=== PATIENT | male | born 1970 | race African-American/Black ===

== ENCOUNTER 2022-05-12 11:40 | Inpatient (IN) | payer MEDICAID ==
[~2022-05-12] VITALS: Ht 182.9 cm; Wt 80.7 kg
[2022-05-12 14:41] LABS: HEMATOCRIT. 24.8 % (42.0-52.0); MEAN CORPUSCULAR HEMOGLOBIN 31.3 pg (28.0-32.0); MEAN CORPUSCULAR VOLUME 96.6 fL (80.0-94.0); MEAN PLATELET VOLUME 9.5 fl (7.4-10.4); PLATELET 355 x1000/uL (130-400); RED BLOOD CELL COUNT 2.56 mill/uL (4.7-6.1); RED CELL DISTRIBUTION WIDTH 14.2 % (11.6-14.6)
[2022-05-12 14:55] LABS: CHLORIDE 111 mEq/L (98-107)
[2022-05-12 15:04] LABS: ETHANOL BLOOD < 10 mg/dL
[2022-05-12] MEDS ORDERED: FUROSEMIDE 40MG/4ML VIAL IV ONE (15:30)
[2022-05-12] MEDS ORDERED: ASPIRIN 81MG TABLET PO ONE (15:30)
[2022-05-12 16:27] LABS: PLATELET ESTIMATE NORMAL
[2022-05-12] MEDS ORDERED: HYDRALAZINE 20MG/ML VIAL IV ONE ×2 (16:30→18:45)
[2022-05-12] MEDS ORDERED: ASPIRIN 81MG TABLET PO NR (17:15)
[2022-05-12] MEDS ORDERED: HYDRALAZINE 20MG/ML VIAL IV NR ×2 (17:15→23:10)
[2022-05-12] MEDS ORDERED: FUROSEMIDE 40MG/4ML VIAL IV NR (17:15)
[2022-05-12] MEDS ORDERED: ONDANSETRON HCL 4MG/2ML INJ IV PRN (23:15)
[2022-05-12] MEDS ORDERED: ACETAMINOPHEN 325MG TABLET PO PRN (23:15)
[2022-05-12] MEDS ORDERED: CLONIDINE 0.1MG TABLET PO PRN (23:15)
[2022-05-12] MEDS ORDERED: IPRATROPIUM/ALBUTEROL 0.5-3(2.5)MG/3ML NEB NEB PRN (23:15)
[2022-05-12] MEDS ORDERED: FUROSEMIDE 40MG/4ML VIAL IVP NR (23:30)
[2022-05-12] MEDS ORDERED: ALBUTEROL (0.083%) 2.5MG/3ML NEB HHN PRN (23:45)
[2022-05-12] MEDS ORDERED: LEVOFLOXACIN 500MG PREMIX 100 ML IV NR (23:45)
[2022-05-12] MEDS ORDERED: IPRATROPIUM BROMIDE (0.02%) 0.5MG/2.5ML NEB HHN PRN (23:45)
[2022-05-13 04:47] LABS: BASOPHILS % 0.8 % (0.0-2.0); EOSINOPHILS % 0.1 % (0.0-5.0); HEMATOCRIT. 24.8 % (42.0-52.0); LYMPHOCYTES % 7.7 % (20.0-50.0); MEAN CORPUSCULAR HEMOGLOBIN 31.4 pg (28.0-32.0); MEAN CORPUSCULAR VOLUME 97.1 fL (80.0-94.0); MEAN PLATELET VOLUME 9.9 fl (7.4-10.4); MONOCYTES % 4.4 % (2.0-8.0); PLATELET 372 x1000/uL (130-400); RED BLOOD CELL COUNT 2.56 mill/uL (4.7-6.1); RED CELL DISTRIBUTION WIDTH 14.2 % (11.6-14.6)
[2022-05-13 07:53] LABS: *AMPHETAMINES SCREEN URINE NEGATIVE (NEGATIVE); *BARBITURATES SCREEN URINE NEGATIVE (NEGATIVE); *BENZODIAZEPINES SCREEN URINE NEGATIVE (NEGATIVE); *COCAINE SCREEN URINE NEGATIVE (NEGATIVE); CANNABINOID URINE SCREEN PRESUMTIVE POSITIVE (NEGATIVE); METHADONE URINE SCREEN NEGATIVE (NEGATIVE); OPIATES URINE SCREEN NEGATIVE (NEGATIVE); PHENCYCLIDINE URINE SCREEN NEGATIVE (NEGATIVE)
[2022-05-13] MEDS ORDERED: INSULIN LISPRO 100 UNITS/ML SUBCUT NR ×2 (09:30→13:15)
[2022-05-13] MEDS: PANTOPRAZOLE SODIUM 40 MG/VIAL IV SCH (09:35)
[2022-05-13] MEDS: ENOXAPARIN 30MG/0.3ML SYR SUBCUT SCH (09:35)
[2022-05-13] MEDS: AMLODIPINE 5MG TABLET PO SCH ×2 (09:35→14:28)
[2022-05-13] MEDS ORDERED: DEXTROSE 50% WATER 50ML SYRINGE IV PRN ×2 (09:45→13:30)
[2022-05-13] MEDS ORDERED: INSULIN GLARGINE 100 UNITS/ML SUBCUT SCH (10:00)
[2022-05-13] MEDS: FUROSEMIDE 40MG/4ML VIAL IVP SCH (10:00)
[2022-05-13] MEDS ORDERED: BLOOD SUGAR DIAGNOSTIC STRIP TEST SCH (11:30)
[2022-05-13] MEDS ORDERED: NITROGLYCERIN OINT 1GM/INCH UDPKT TD SCH (12:00)
[2022-05-13] MEDS: INSULIN LISPRO 100 UNITS/ML SUBCUT SCH ×2 (12:00→17:00)
[2022-05-13 13:09] LABS: CLARITY URINE CLEAR (CLEAR); COLOR URINE YELLOW (YELLOW); KETONES URINE TRACE (NEGATIVE); LEUKOCYTE ESTERASE URINE NEGATIVE (NEGATIVE); NITRITE URINE NEGATIVE (NEGATIVE); OCCULT BLOOD URINE NEGATIVE (NEGATIVE); PROTEIN URINE 2+ (NEGATIVE); SPECIFIC GRAVITY URINE 1.012 (1.005-1.030); UROBILINOGEN URINE 0.2 E.U./dL (0.2-1.0)
[2022-05-13] MEDS: METOPROLOL SUCCINATE 50MG ER TABLET PO SCH (13:30)
[2022-05-13] MEDS ORDERED: SODIUM CHLORIDE 0.9% 1,000 ML IV SCH (13:30)
[2022-05-13] MEDS ORDERED: INSULIN REGULAR 100U/100ML PMX 100 ML IV SCH (13:30)
[2022-05-13] MEDS: BLOOD SUGAR DIAGNOSTIC STRIP TEST SCH ×11 (13:30→23:30)
[2022-05-13] MEDS ORDERED: LABETALOL 5MG/ML SYR 20 MG/4 ML SYRINGE IV NR (13:45)
[2022-05-13] MEDS ORDERED: SODIUM BICARBONATE 8.4% 1 MEQ/ML 50ML SYR IV NR (13:45)
[2022-05-13] MEDS ORDERED: CLONIDINE 0.1MG TABLET PO SCH (14:00)
[2022-05-13] MEDS: HYDRALAZINE HCL 50MG TABLET PO SCH ×2 (14:00→22:00)
[2022-05-13] MEDS: CITRIC ACID/SODIUM CITRATE SOLN 30ML UDC PO SCH ×2 (14:20→17:00)
[2022-05-13] MEDS: CLONIDINE 0.1MG TABLET PO SCH (14:28)
[2022-05-13] MEDS ORDERED: NITROGLYCERIN 50MG PREMIX 250 ML IV SCH (15:00)
[2022-05-13 16:14] LABS: BETA HYDROXYBUTYRATE 0.9 mMol/L (0.0-0.3)
[2022-05-13] MEDS ORDERED: MORPHINE SULFATE 2 MG/ML CPJ (NOT FOR IM USE) IV PRN (21:45)
[2022-05-13] MEDS ORDERED: ONDANSETRON HCL 4MG/2ML INJ IV PRN (21:45)
[2022-05-13] MEDS: PHENYTOIN SODIUM EXTENDED 100MG CAPSULE PO SCH (23:21)
[2022-05-14] VITALS (10 sets, daily range): BP systolic 143–163; BP diastolic 74–92
[2022-05-14] MEDS: BLOOD SUGAR DIAGNOSTIC STRIP TEST SCH ×11 (00:30→22:07)
[2022-05-14] MEDS ORDERED: LEVOFLOXACIN 250MG PREMIX 100 ML IV SCH (01:00)
[2022-05-14] MEDS: DEXTROSE 50% WATER 50ML SYRINGE IV PRN ×2 (01:21→02:54)
[2022-05-14] MEDS: CLONIDINE 0.1MG TABLET PO SCH ×3 (01:47→22:06)
[2022-05-14 05:31] LABS: BASOPHILS % 0.3 % (0.0-2.0); EOSINOPHILS % 2.5 % (0.0-5.0); LYMPHOCYTES % 10.3 % (20.0-50.0); MEAN CORPUSCULAR HEMOGLOBIN 32.2 pg (28.0-32.0); MEAN CORPUSCULAR VOLUME 93.6 fL (80.0-94.0); MONOCYTES % 6.4 % (2.0-8.0); NEUTROPHILS % 80.5 % (40.0-76.0); PLATELET 344 x1000/uL (130-400); RED BLOOD CELL COUNT 2.18 mill/uL (4.7-6.1); RED CELL DISTRIBUTION WIDTH 13.6 % (11.6-14.6)
[2022-05-14 06:25] LABS: HEMATOCRIT. 20.4 % (42.0-52.0)
[2022-05-14] MEDS: HYDRALAZINE HCL 50MG TABLET PO SCH ×3 (06:37→22:05)
[2022-05-14] MEDS: ENOXAPARIN 30MG/0.3ML SYR SUBCUT SCH (11:56)
[2022-05-14] MEDS: PANTOPRAZOLE SODIUM 40 MG/VIAL IV SCH (11:56)
[2022-05-14] MEDS: PHENYTOIN SODIUM EXTENDED 100MG CAPSULE PO SCH ×2 (11:56→20:49)
[2022-05-14] MEDS: FUROSEMIDE 40MG/4ML VIAL IVP SCH (11:56)
[2022-05-14] MEDS: CITRIC ACID/SODIUM CITRATE SOLN 30ML UDC PO SCH ×3 (11:56→17:48)
[2022-05-14] MEDS: AMLODIPINE 5MG TABLET PO SCH ×2 (11:57→20:50)
[2022-05-14] MEDS: METOPROLOL SUCCINATE 50MG ER TABLET PO SCH (11:57)
[2022-05-14] MEDS ORDERED: DEXTROSE 50% WATER 50ML SYRINGE IV PRN (12:15)
[2022-05-14] MEDS: INSULIN LISPRO 100 UNITS/ML SUBCUT SCH ×3 (13:00→22:11)
[2022-05-14] MEDS: NITROGLYCERIN OINT 1GM/INCH UDPKT TD SCH ×2 (17:48→22:06)
[2022-05-14] MEDS: INSULIN GLARGINE 100 UNITS/ML SUBCUT SCH (17:51)
[2022-05-14] MEDS ORDERED: NALOXONE HCL 0.4MG/ML VIAL IV PRN (19:45)
[2022-05-14] MEDS: EPOETIN ALFA-EPBX 4,000 UNIT/ML VIAL SUBCUT SCH (20:53)
[2022-05-15] VITALS (13 sets, daily range): BP systolic 111–149; BP diastolic 60–96
[2022-05-15] MEDS: HYDRALAZINE HCL 50MG TABLET PO SCH ×3 (05:41→22:12)
[2022-05-15] MEDS: NITROGLYCERIN OINT 1GM/INCH UDPKT TD SCH ×3 (05:41→22:13)
[2022-05-15] MEDS: CLONIDINE 0.1MG TABLET PO SCH ×3 (05:41→22:12)
[2022-05-15] MEDS: INSULIN LISPRO 100 UNITS/ML SUBCUT SCH ×4 (08:00→21:00)
[2022-05-15 08:07] LABS: HEMATOCRIT. 22.8 % (42.0-52.0); HEMOGLOBIN. 7.7 g/dL (14.0-18.0); MEAN CORPUSCULAR HEMOGLOBIN 31.4 pg (28.0-32.0); MEAN CORPUSCULAR VOLUME 92.6 fL (80.0-94.0); MEAN PLATELET VOLUME 8.9 fl (7.4-10.4); PLATELET 300 x1000/uL (130-400); RED BLOOD CELL COUNT 2.46 mill/uL (4.7-6.1); RED CELL DISTRIBUTION WIDTH 15.8 % (11.6-14.6)
[2022-05-15] MEDS: BLOOD SUGAR DIAGNOSTIC STRIP TEST SCH ×4 (08:17→20:34)
[2022-05-15] MEDS: PHENYTOIN SODIUM EXTENDED 100MG CAPSULE PO SCH ×2 (10:30→20:34)
[2022-05-15] MEDS: AMLODIPINE 5MG TABLET PO SCH ×2 (10:31→20:34)
[2022-05-15] MEDS: CITRIC ACID/SODIUM CITRATE SOLN 30ML UDC PO SCH ×3 (10:31→17:21)
[2022-05-15] MEDS: FUROSEMIDE 40MG/4ML VIAL IVP SCH (10:31)
[2022-05-15] MEDS: METOPROLOL SUCCINATE 50MG ER TABLET PO SCH (10:35)
[2022-05-15] MEDS: PANTOPRAZOLE SODIUM 40 MG/VIAL IV SCH (10:35)
[2022-05-15] MEDS: LEVOFLOXACIN 500MG PREMIX 100 ML IV SCH (10:35)
[2022-05-15] MEDS: INSULIN GLARGINE 100 UNITS/ML SUBCUT SCH (11:00)
[2022-05-15] MEDS ORDERED: METOPROLOL TARTRATE 5MG/5ML VIAL IV PRN (16:30)
[2022-05-15 19:57] LABS: PLATELET ESTIMATE NORMAL
[2022-05-16] VITALS (11 sets, daily range): BP systolic 128–170; BP diastolic 62–100
[2022-05-16] MEDS: BLOOD SUGAR DIAGNOSTIC STRIP TEST SCH ×4 (05:00→21:24)
[2022-05-16] MEDS: CLONIDINE 0.1MG TABLET PO SCH ×3 (05:33→22:56)
[2022-05-16] MEDS: HYDRALAZINE HCL 50MG TABLET PO SCH ×3 (05:33→22:56)
[2022-05-16] MEDS: NITROGLYCERIN OINT 1GM/INCH UDPKT TD SCH ×3 (05:34→22:56)
[2022-05-16 07:21] LABS: HEMATOCRIT. 23.6 % (42.0-52.0); HEMOGLOBIN. 7.9 g/dL (14.0-18.0); MEAN CORPUSCULAR HEMOGLOBIN 31.1 pg (28.0-32.0); MEAN PLATELET VOLUME 9.3 fl (7.4-10.4); PLATELET 288 x1000/uL (130-400); RED BLOOD CELL COUNT 2.54 mill/uL (4.7-6.1)
[2022-05-16] MEDS: INSULIN LISPRO 100 UNITS/ML SUBCUT SCH ×4 (08:00→21:40)
[2022-05-16] MEDS: CITRIC ACID/SODIUM CITRATE SOLN 30ML UDC PO SCH ×3 (09:09→18:41)
[2022-05-16] MEDS: PHENYTOIN SODIUM EXTENDED 100MG CAPSULE PO SCH ×2 (09:09→21:25)
[2022-05-16] MEDS: FUROSEMIDE 40MG/4ML VIAL IVP SCH (09:09)
[2022-05-16] MEDS: AMLODIPINE 5MG TABLET PO SCH ×2 (09:09→21:26)
[2022-05-16] MEDS: PANTOPRAZOLE 40MG DR TABLET PO SCH (09:09)
[2022-05-16] MEDS: INSULIN GLARGINE 100 UNITS/ML SUBCUT SCH (10:00)
[2022-05-16] MEDS: METOPROLOL SUCCINATE 50MG ER TABLET PO SCH (10:03)
[2022-05-16 13:16] LABS: PLATELET ESTIMATE NORMAL
[2022-05-16] MEDS: EPOETIN ALFA-EPBX 4,000 UNIT/ML VIAL SUBCUT SCH (21:24)
[2022-05-17] VITALS (9 sets, daily range): BP systolic 143–167; BP diastolic 50–85
[2022-05-17] MEDS: NITROGLYCERIN OINT 1GM/INCH UDPKT TD SCH (05:12)
[2022-05-17] MEDS: HYDRALAZINE HCL 50MG TABLET PO SCH (05:13)
[2022-05-17] MEDS: CLONIDINE 0.1MG TABLET PO SCH (05:13)
[2022-05-17 07:30] LABS: BASOPHILS % 1.4 % (0.0-2.0); EOSINOPHILS % 0.5 % (0.0-5.0); HEMATOCRIT. 22.9 % (42.0-52.0); HEMOGLOBIN. 7.6 g/dL (14.0-18.0); LYMPHOCYTES % 7.3 % (20.0-50.0); MEAN CORPUSCULAR VOLUME 93.2 fL (80.0-94.0); MEAN PLATELET VOLUME 9.4 fl (7.4-10.4); MONOCYTES % 6.9 % (2.0-8.0); NEUTROPHILS % 83.9 % (40.0-76.0); PLATELET 284 x1000/uL (130-400); RED BLOOD CELL COUNT 2.45 mill/uL (4.7-6.1)
[2022-05-17] MEDS: BLOOD SUGAR DIAGNOSTIC STRIP TEST SCH ×2 (07:52→12:08)
[2022-05-17] MEDS: FUROSEMIDE 40MG/4ML VIAL IVP SCH (08:29)
[2022-05-17] MEDS: CITRIC ACID/SODIUM CITRATE SOLN 30ML UDC PO SCH ×2 (08:29→13:00)
[2022-05-17] MEDS: PANTOPRAZOLE 40MG DR TABLET PO SCH (08:29)
[2022-05-17] MEDS: PHENYTOIN SODIUM EXTENDED 100MG CAPSULE PO SCH (08:29)
[2022-05-17] MEDS: INSULIN LISPRO 100 UNITS/ML SUBCUT SCH ×2 (08:30→13:00)
[2022-05-17] MEDS: AMLODIPINE 5MG TABLET PO SCH (08:30)
[2022-05-17] MEDS ORDERED: PHEN100C4 PO (11:17)
[2022-05-17] MEDS ORDERED: METO-385 PO (11:17)
[2022-05-17] MEDS ORDERED: CLON0.1T PO (11:17)
[2022-05-17] MEDS ORDERED: INSU100I24 SQ (11:17)
[2022-05-17] MEDS ORDERED: CITR473S PO (11:17)
[2022-05-17] MEDS ORDERED: AMLO5TAB88 PO (11:17)
[2022-05-17] MEDS ORDERED: HYDR-4135 PO (11:17)
[2022-05-17] MEDS ORDERED: LEVO-65 MT (11:18)
[2022-05-17] MEDS: INSULIN GLARGINE 100 UNITS/ML SUBCUT SCH (11:45)
[2022-05-17] MEDS: LEVOFLOXACIN 500MG PREMIX 100 ML IV SCH (11:47)
[2022-05-17] MEDS: METOPROLOL SUCCINATE 50MG ER TABLET PO SCH (13:00)
== END 2022-05-17 17:24 | disposition home or self-care (01) | DRG 720 ==
LOC: ER 11:40 → MICUSO 18:46 → EDBEDREQTM 18:49 → EDBEDREQSVC 18:49 → EDBEDREQ 18:49 → EDBEDREQSVC 05-14 07:47 → 5EST 05-14 10:36
PROVIDERS: ADMIT Internal Medicine; ATTEND Internal Medicine
PROC: 30233N1 Transfusion of Nonautologous Red Blood Cells into Peripheral Vein, Percutaneous Approach (ICD-10-PCS; principal; 2022-05-14)
DX: A41.9 Sepsis, unspecified organism (principal); J96.01 Acute respiratory failure with hypoxia; E43 Unspecified severe protein-calorie malnutrition; I13.0 Hypertensive heart and chronic kidney disease with heart failure and stage 1 through stage 4 chronic kidney disease, or unspecified chronic kidney disease; N17.9 Acute kidney failure, unspecified; E11.319 Type 2 diabetes mellitus with unspecified diabetic retinopathy without macular edema; E88.09 Other disorders of plasma-protein metabolism, not elsewhere classified; D63.1 Anemia in chronic kidney disease; I50.9 Heart failure, unspecified; E11.22 Type 2 diabetes mellitus with diabetic chronic kidney disease; J18.9 Pneumonia, unspecified organism; Z20.822 Contact with and (suspected) exposure to COVID-19; I16.1 Hypertensive emergency; E87.5 Hyperkalemia; N18.9 Chronic kidney disease, unspecified; F17.210 Nicotine dependence, cigarettes, uncomplicated; Z87.820 Personal history of traumatic brain injury; Z79.899 Other long term (current) drug therapy; Z68.24 Body mass index [BMI] 24.0-24.9, adult
CPT/HCPCS: 36415; 71045; 76770; 80048; 80053; 80305; 80320; 81003; 82010; 82550; 82962; 83036; 83880; 84145; 84484; 85025; 86850; 86900; 86920; 87426; 93005; 93306; 93970; 99291; C9113; C9803; J0360; J0885; J1650; J1815; J1940; J1956; J2270; J2405; J3490; J7030; P9016; G0480

== ENCOUNTER 2022-07-09 14:30 | Inpatient (IN) | payer MEDICAID ==
[~2022-07-09] VITALS: Ht 180.3 cm; Wt 66.5 kg
[~2022-07-09 14:30] MED LIST: AMLO5TAB88 PO; CITR473S PO; CLON0.1T PO; HYDR-4135 PO; INSU100I24 SQ; LEVO-65 MT; METO-385 PO; PHEN100C4 PO
[2022-07-09] MEDS ORDERED: FLUORESCEIN SODIUM 1MG/STRIP BOTHEYE ONE (14:45)
[2022-07-09] MEDS ORDERED: TETRACAINE 0.5% OPHTH DROPS 4ML BOTHEYE ONE (14:45)
[2022-07-09] MEDS ORDERED: CLONIDINE 0.1MG TABLET PO NR (15:00)
[2022-07-09 15:21] LABS: BASOPHILS % 3.7 % (0.0-2.0); EOSINOPHILS % 1.3 % (0.0-5.0); HEMATOCRIT. 29.7 % (42.0-52.0); HEMOGLOBIN. 9.7 g/dL (14.0-18.0); LYMPHOCYTES % 19.9 % (20.0-50.0); MEAN CORPUSCULAR HEMOGLOBIN 30.5 pg (28.0-32.0); MEAN CORPUSCULAR VOLUME 92.8 fL (80.0-94.0); MEAN PLATELET VOLUME 8.4 fl (7.4-10.4); MONOCYTES % 6.9 % (2.0-8.0); NEUTROPHILS % 68.2 % (40.0-76.0); PLATELET 463 x1000/uL (130-400); RED CELL DISTRIBUTION WIDTH 16.1 % (11.6-14.6)
[2022-07-09 15:26] LABS: CHLORIDE 105 mEq/L (98-107)
[2022-07-09] MEDS ORDERED: HYDRALAZINE 20MG/ML VIAL IV NR (16:15)
[2022-07-10] MEDS ORDERED: HYDRALAZINE 20MG/ML VIAL IV NR ×2 (00:45→05:15)
[2022-07-10] MEDS ORDERED: CLONIDINE 0.1MG TABLET PO PRN (01:30)
[2022-07-10] MEDS: HYDRALAZINE 20MG/ML VIAL IV PRN ×2 (01:40→08:43)
[2022-07-10] MEDS ORDERED: DEXTROSE 50% WATER 50ML SYRINGE IV PRN (02:00)
[2022-07-10] MEDS ORDERED: IPRATROPIUM/ALBUTEROL 0.5-3(2.5)MG/3ML NEB HHN PRN (02:15)
[2022-07-10] MEDS ORDERED: DOCUSATE SODIUM 100MG CAPSULE PO PRN (02:15)
[2022-07-10] MEDS ORDERED: ONDANSETRON HCL 4MG/2ML INJ IV PRN (02:15)
[2022-07-10] MEDS ORDERED: ACETAMINOPHEN 325MG TABLET PO PRN (02:15)
[2022-07-10] MEDS ORDERED: GUAIFENESIN 200MG/10ML SUGAR FREE UDC PO PRN (02:15)
[2022-07-10 03:55] VITALS: BP 171/99
[2022-07-10 04:00] VITALS: BP 192/88
[2022-07-10] MEDS ORDERED: ASPI-1497 PO (04:39)
[2022-07-10] MEDS ORDERED: METO-385 PO (04:39)
[2022-07-10] MEDS ORDERED: POTA-202 PO (04:39)
[2022-07-10] MEDS ORDERED: ENAL20TA18 PO (04:39)
[2022-07-10] MEDS ORDERED: FOLI-43 PO (04:39)
[2022-07-10 05:43] VITALS: BP 178/95
[2022-07-10] MEDS: BLOOD SUGAR DIAGNOSTIC STRIP TEST SCH ×2 (05:43→11:40)
[2022-07-10 05:48] LABS: CHLORIDE 105 mEq/L (98-107)
[2022-07-10 06:04] LABS: PHOSPHORUS 3.6 mg/dL (2.5-4.9); T4 FREE 0.93 ng/dL (0.76-1.46); TOTAL IRON BINDING CAPACITY 246 ug/dL (250-450)
[2022-07-10 06:11] LABS: FOLIC ACID (FOLATE) SERUM > 20.00 ng/mL (>5.38)
[2022-07-10 06:20] LABS: EOSINOPHILS % 2.5 % (0.0-5.0); HEMATOCRIT. 29.4 % (42.0-52.0); HEMOGLOBIN. 10.1 g/dL (14.0-18.0); LYMPHOCYTES % 20.1 % (20.0-50.0); MEAN CORPUSCULAR HEMOGLOBIN 30.7 pg (28.0-32.0); MEAN CORPUSCULAR VOLUME 89.6 fL (80.0-94.0); MEAN PLATELET VOLUME 8.8 fl (7.4-10.4); NEUTROPHILS % 68.4 % (40.0-76.0); PLATELET 457 x1000/uL (130-400); RED BLOOD CELL COUNT 3.28 mill/uL (4.7-6.1); RED CELL DISTRIBUTION WIDTH 16.1 % (11.6-14.6)
[2022-07-10] MEDS: INSULIN LISPRO 100 UNITS/ML SUBCUT SCH ×2 (06:42→13:29)
[2022-07-10 08:04] VITALS: BP 173/98
[2022-07-10] MEDS ORDERED: AMLODIPINE 5MG TABLET PO SCH (09:00)
[2022-07-10] MEDS ORDERED: FAMOTIDINE 20MG TABLET PO SCH (09:00)
[2022-07-10] MEDS ORDERED: ENOXAPARIN 40MG/0.4ML SYR SUBCUT SCH (09:00)
[2022-07-10 12:00] VITALS: BP 163/78
[2022-07-10] MEDS ORDERED: METOPROLOL SUCCINATE 50MG ER TABLET PO SCH (12:00)
[2022-07-10 13:39] VITALS: BP 163/78
[2022-07-10] MEDS ORDERED: CLONIDINE 0.1MG TABLET PO SCH (14:00)
[2022-07-10] MEDS ORDERED: HYDRALAZINE HCL 50MG TABLET PO SCH (14:00)
[2022-07-10] MEDS ORDERED: PHENYTOIN SODIUM EXTENDED 100MG CAPSULE PO SCH (18:00)
[2022-07-11] MEDS ORDERED: ENALAPRIL 5MG TABLET PO SCH (09:00)
[2022-07-11] MEDS ORDERED: INSULIN GLARGINE 100 UNITS/ML SUBCUT SCH (10:00)
== END 2022-07-10 14:50 | disposition home or self-care (01) | DRG 470 ==
LOC: ER 14:30 → 7EST 19:23 → ENRESERV 23:56 → 8WST 07-10 00:11 → 7EST 07-10 00:13
PROVIDERS: ADMIT Internal Medicine; ATTEND Internal Medicine
DX: I12.0 Hypertensive chronic kidney disease with stage 5 chronic kidney disease or end stage renal disease (principal); N18.6 End stage renal disease; E11.22 Type 2 diabetes mellitus with diabetic chronic kidney disease; E44.0 Moderate protein-calorie malnutrition; E11.319 Type 2 diabetes mellitus with unspecified diabetic retinopathy without macular edema; E87.1 Hypo-osmolality and hyponatremia; H35.039 Hypertensive retinopathy, unspecified eye; D64.9 Anemia, unspecified; D75.839 Thrombocytosis, unspecified; E03.8 Other specified hypothyroidism; E11.65 Type 2 diabetes mellitus with hyperglycemia; E61.1 Iron deficiency; G40.909 Epilepsy, unspecified, not intractable, without status epilepticus; R74.8 Abnormal levels of other serum enzymes; H54.3 Unqualified visual loss, both eyes; Z99.2 Dependence on renal dialysis; Z79.4 Long term (current) use of insulin; Z82.49 Family history of ischemic heart disease and other diseases of the circulatory system; Z86.73 Personal history of transient ischemic attack (TIA), and cerebral infarction without residual deficits; Z68.20 Body mass index [BMI] 20.0-20.9, adult; Z79.82 Long term (current) use of aspirin
CPT/HCPCS: 36415; 70496; 70498; 71045; 76700; 80053; 82746; 82962; 83036; 83540; 83550; 83735; 83880; 84100; 84425; 84439; 84443; 84484; 85025; 93005; 93970; 99285; J0360; J1650; J1815

== ENCOUNTER 2023-01-14 06:37 | Inpatient (IN) | payer OTHER ==
[~2023-01-14] VITALS: Ht 180.3 cm; Wt 63.6 kg
[2023-01-14] VITALS (22 sets, daily range): BP systolic 179–253; BP diastolic 89–137; PULSE 67–99; RESP 12–22; TEMP 97.5–98.9; O2SAT 98
[~2023-01-14 06:37] MED LIST changes: -AMLO5TAB88 PO; +ASPI-1497 PO; -CITR473S PO; +ENAL-79 PO; +FOLI-43 PO; -LEVO-65 MT; +POTA-202 PO
[2023-01-14 08:46] LABS: BASOPHILS % 1.4 % (0.0-2.0); EOSINOPHILS % 1.1 % (0.0-5.0); HEMATOCRIT. 30.7 % (42.0-52.0); LYMPHOCYTES % 12.7 % (20.0-50.0); MEAN CORPUSCULAR HEMOGLOBIN 31.4 pg (28.0-32.0); MEAN CORPUSCULAR HGB CONC 32.6 g/dL (31.0-37.0); MEAN CORPUSCULAR VOLUME 96.5 fL (80.0-94.0); MEAN PLATELET VOLUME 9.5 fl (7.4-10.4); MONOCYTES % 5.2 % (2.0-8.0); NEUTROPHILS % 79.6 % (40.0-76.0); PLATELET 236 x1000/uL (130-400); RED BLOOD CELL COUNT 3.18 mill/uL (4.7-6.1); RED CELL DISTRIBUTION WIDTH 15.6 % (11.6-14.6); WHITE BLOOD COUNT 7.3 x1000/uL (4.5-11.0)
[2023-01-14 09:00] LABS: CALCIUM 8.5 mg/dL (8.5-10.1); CHLORIDE 106 mEq/L (98-107); INDEX HEMOLYSI 2 (1-3); INDEX ICTERIC 1 (1-4); INDEX LIPEMIC 1 (1-3); POTASSIUM 4.2 mEq/L (3.5-5.1); SODIUM 140 mEq/L (136-145)
[2023-01-14] MEDS ORDERED: ALTEPLASE 2MG/VIAL ITC SCH (09:00)
[2023-01-14] MEDS ORDERED: ALTEPLASE 2MG/VIAL ITC NR (09:01)
[2023-01-14 09:07] LABS: ALANINE AMINOTRANSFERASE 31 IU/L (13-61); ALBUMIN 3.4 g/dL (3.4-5.0); ASPARTATE AMINOTRANSFERASE 18 IU/L (15-37); BILIRUBIN TOTAL 0.3 mg/dL (0.1-1.0); CARBON DIOXIDE 27 mEq/L (21-32); GLUCOSE 323 mg/dL (70-105); PROTEIN TOTAL 6.8 g/dL (6.0-8.3)
[2023-01-14 09:16] LABS: INR 0.9; PROTHROMBIN TIME 10.1 sec (9.6-11.0)
[2023-01-14 09:16] LABS: CREATININE 5.8 mg/dL (0.6-1.3); UREA NITROGEN BLOOD 83 mg/dL (7-21)
[2023-01-14] MEDS ORDERED: HYDRALAZINE 20MG/ML VIAL IV NR (12:15)
[2023-01-14] MEDS ORDERED: HYDRALAZINE HCL 50MG TABLET PO SCH (12:30)
[2023-01-14] MEDS ORDERED: CEFAZOLIN 1000MG PREMIX 50 ML IV SCH (12:30)
[2023-01-14] MEDS ORDERED: LIDOCAINE HCL 1% 10 MG/ML 10ML VIAL ONE (12:34)
[2023-01-14] MEDS ORDERED: HYDRALAZINE HCL 25MG TABLET PO SCH (12:35)
[2023-01-14] MEDS: CLONIDINE 0.1MG TABLET PO SCH ×2 (12:52→21:34)
[2023-01-14] MEDS ORDERED: FENTANYL CITRATE/PF 50MCG/ML 2ML VIAL ONE (13:20)
[2023-01-14] MEDS ORDERED: FENTANYL CITRATE/PF 50MCG/ML 2ML VIAL IV ONE (13:45)
[2023-01-14] MEDS ORDERED: FENTANYL CITRATE/PF 50MCG/ML 2ML VIAL IV NR (13:45)
[2023-01-14] MEDS ORDERED: CLONIDINE 0.1MG TABLET PO NR (14:39)
[2023-01-14] MEDS ORDERED: NIFEDIPINE XL 90MG TAB PO NR (15:45)
[2023-01-14] MEDS ORDERED: ACETAMINOPHEN 325MG TABLET PO PRN (17:45)
[2023-01-14] MEDS ORDERED: ONDANSETRON HCL 4MG/2ML INJ IV PRN (17:45)
[2023-01-14] MEDS: MINOXIDIL 2.5MG TABLET PO SCH (17:54)
[2023-01-14] MEDS ORDERED: DOXAZOSIN MESYLATE 4MG TABLET PO SCH ×2 (21:00→21:51)
[2023-01-14] MEDS: PHENYTOIN SODIUM EXTENDED 100MG CAPSULE PO SCH (21:34)
[2023-01-15] VITALS: BP_SYST 180; BP_SYST 194; BP_DIAS 102; BP_DIAS 99; PULSE 81; PULSE 99; RESP 18; RESP 20; TEMP 98.5
[2023-01-15 00:30] VITALS: BP 165/89; PULSE 111; RESP 19
[2023-01-15 01:00] VITALS: BP 197/102; PULSE 100; RESP 17
[2023-01-15 01:05] VITALS: BP 200/102; PULSE 84; RESP 18; TEMP 97.8
[2023-01-15 04:00] VITALS: BP 228/111; PULSE 79; RESP 11; TEMP 98
[2023-01-15] MEDS ORDERED: HYDRALAZINE 20MG/ML VIAL IV PRN (04:30)
[2023-01-15] MEDS: CLONIDINE 0.1MG TABLET PO SCH (05:17)
[2023-01-15] MEDS: MINOXIDIL 2.5MG TABLET PO SCH (05:17)
[2023-01-15 06:40] LABS: HEMATOCRIT 33.7 % (42.0-52.0); HEMOGLOBIN 11.3 g/dL (14.0-18.0); MEAN CORPUSCULAR HEMOGLOBIN 32.4 pg (28.0-32.0); MEAN CORPUSCULAR HGB CONC 33.6 g/dL (31.0-37.0); MEAN CORPUSCULAR VOLUME 96.3 fL (80.0-94.0); PLATELET 251 x1000/uL (130-400); RED CELL DISTRIBUTION WIDTH 15.6 % (11.6-14.6); WHITE BLOOD COUNT 8.1 x1000/uL (4.5-11.0)
[2023-01-15 06:45] LABS: CALCIUM 8.7 mg/dL (8.5-10.1); POTASSIUM 3.8 mEq/L (3.5-5.1)
[2023-01-15 06:49] LABS: CREATININE 3.8 mg/dL (0.6-1.3)
[2023-01-15 08:00] VITALS: BP 205/102; PULSE 82; RESP 14; TEMP 98.1
[2023-01-15] MEDS ORDERED: HYDRALAZINE HCL 100MG TABLET PO SCH (08:00)
[2023-01-15] MEDS: PHENYTOIN SODIUM EXTENDED 100MG CAPSULE PO SCH (08:19)
[2023-01-15] MEDS ORDERED: HEPARIN SODIUM 1,000 UNIT/1ML VIAL IV ONE (08:19)
[2023-01-15] MEDS ORDERED: BACITRACIN 14GM TUBE TOP ONE (08:19)
[2023-01-15] MEDS ORDERED: LIDOCAINE HCL 1% 10 MG/ML 10ML VIAL ONE (08:19)
[2023-01-15] MEDS ORDERED: THROMBIN (BOVINE) 5000 UNITS/VIAL TOP ONE (08:20)
[2023-01-15] MEDS ORDERED: POLYMYXIN B SULFATE 500000 UNITS/VIAL ONE (08:20)
[2023-01-15] MEDS ORDERED: NIFEDIPINE XL 60MG TAB PO SCH (09:00)
[2023-01-15] MEDS ORDERED: LABETALOL 5MG/ML SYR 20 MG/4 ML SYRINGE IV SCH (10:30)
[2023-01-15] MEDS ORDERED: NICARDIPINE 100 MG in SODIUM CHLORIDE 0.9% 60 ML IV PRN (10:45)
[2023-01-15] MEDS ORDERED: MINOXIDIL 2.5MG TABLET PO NR (12:00)
[2023-01-15] MEDS ORDERED: CLONIDINE 0.1MG TABLET PO SCH (14:00)
[2023-01-15] MEDS ORDERED: CLONIDINE 0.2MG TABLET PO SCH (14:00)
[2023-01-15] MEDS ORDERED: MINOXIDIL 2.5MG TABLET PO SCH (18:00)
[2023-01-17 15:31] LABS: HEPATITIS B SURFACE ANTIGEN NEGATIVE (Negative)
[2023-01-18 18:23] LABS: HEPATITIS A AB IGM NEGATIVE (NEGATIVE); HEPATITIS B CORE AB IGM NEGATIVE (Negative); HEPATITIS C AB NON REACTIVE (Neg) (Negative)
== END 2023-01-15 14:05 | disposition left against medical advice (07) | DRG 466 ==
LOC: ER 06:37 → 3WST 09:49 → EDBEDREQ 09:52 → SUPCPDRO 14:15
PROVIDERS: ADMIT Internal Medicine; ATTEND Internal Medicine
PROC: 0JH63XZ Insertion of Tunneled Vascular Access Device into Chest Subcutaneous Tissue and Fascia, Percutaneous Approach (ICD-10-PCS; principal; 2023-01-14)
PROC: B518ZZA Fluoroscopy of Superior Vena Cava, Guidance (ICD-10-PCS; 2023-01-14)
PROC: 5A1D70Z Performance of Urinary Filtration, Intermittent, Less than 6 Hours Per Day (ICD-10-PCS; 2023-01-14)
DX: T82.41XA Breakdown (mechanical) of vascular dialysis catheter, initial encounter (principal); I12.0 Hypertensive chronic kidney disease with stage 5 chronic kidney disease or end stage renal disease; E11.22 Type 2 diabetes mellitus with diabetic chronic kidney disease; E46 Unspecified protein-calorie malnutrition; E11.319 Type 2 diabetes mellitus with unspecified diabetic retinopathy without macular edema; D64.9 Anemia, unspecified; Z20.822 Contact with and (suspected) exposure to COVID-19; Z68.1 Body mass index [BMI] 19.9 or less, adult; N18.6 End stage renal disease; Y71.2 Prosthetic and other implants, materials and accessory cardiovascular devices associated with adverse incidents; Z86.73 Personal history of transient ischemic attack (TIA), and cerebral infarction without residual deficits; Z99.2 Dependence on renal dialysis
CPT/HCPCS: 36415; 36581; 71045; 77001; 80048; 80053; 82962; 85025; 85027; 86705; 86709; 86850; 86900; 87340; 87426; 90935; 99152; 99153; 99285; C1750; C1769; C9803; J0360; J0690; J1642; J1644; J2997; J3010; J3490; G0500

== ENCOUNTER 2023-02-13 08:20 | Emergency (ER) | payer OTHER ==
[~2023-02-13] VITALS: Ht 180.3 cm; Wt 63.5 kg
[2023-02-13 08:46] VITALS: O2SAT 100
[2023-02-13 09:01] LABS: BASOPHILS % 0.6 % (0.0-2.0); EOSINOPHILS % 0.5 % (0.0-5.0); HEMATOCRIT. 41.8 % (42.0-52.0); HEMOGLOBIN. 13.9 g/dL (14.0-18.0); LYMPHOCYTES % 12.3 % (20.0-50.0); MEAN CORPUSCULAR HEMOGLOBIN 32.3 pg (28.0-32.0); MEAN CORPUSCULAR HGB CONC 33.2 g/dL (31.0-37.0); MEAN CORPUSCULAR VOLUME 97.4 fL (80.0-94.0); MONOCYTES % 6.3 % (2.0-8.0); NEUTROPHILS % 80.3 % (40.0-76.0); PLATELET 277 x1000/uL (130-400); RED BLOOD CELL COUNT 4.29 mill/uL (4.7-6.1); RED CELL DISTRIBUTION WIDTH 14.7 % (11.6-14.6); WHITE BLOOD COUNT 6.9 x1000/uL (4.5-11.0)
[2023-02-13 09:42] LABS: ALANINE AMINOTRANSFERASE 34 IU/L (10-49); ALBUMIN 4.6 g/dL (3.2-4.8); ASPARTATE AMINOTRANSFERASE 45 IU/L (<34); BILIRUBIN TOTAL 0.2 mg/dL (0.1-1.0); CALCIUM 9.8 mg/dL (8.7-10.4); CARBON DIOXIDE 29 mEq/L (21-32); CHLORIDE 95 mEq/L (98-107); GLUCOSE 254 mg/dL (70-105); POTASSIUM 3.9 mEq/L (3.5-5.1); PROTEIN TOTAL 7.3 g/dL (6.0-8.3); SODIUM 134 mEq/L (136-145); UREA NITROGEN BLOOD 31 mg/dL (9-23)
[2023-02-13 10:42] LABS: CREATININE 5.6 mg/dL (0.6-1.3)
[2023-02-13] MEDS ORDERED: ONDANSETRON HCL 4MG/2ML INJ IV ONE (10:45)
[2023-02-13] MEDS ORDERED: HYDRALAZINE 20MG/ML VIAL IV PRN (13:00)
[2023-02-13] MEDS ORDERED: CLONIDINE 0.1MG TABLET PO SCH (14:15)
[2023-02-13 15:10] LABS: CLARITY URINE CLEAR (CLEAR); COLOR URINE YELLOW (YELLOW); GLUCOSE URINE 3+ (NEGATIVE); KETONES URINE TRACE (NEGATIVE); LEUKOCYTE ESTERASE URINE NEGATIVE (NEGATIVE); NITRITE URINE NEGATIVE (NEGATIVE); OCCULT BLOOD URINE NEGATIVE (NEGATIVE); PROTEIN URINE 4+ (NEGATIVE); SPECIFIC GRAVITY URINE 1.022 (1.005-1.030); UROBILINOGEN URINE 0.2 E.U./dL (0.2-1.0)
[2023-02-13 15:13] VITALS: BP 218/112; PULSE 106; RESP 22; TEMP 98.1
[2023-02-13 15:21] LABS: SQUAMOUS EPITHELIAL CELL URINE RARE /lpf (RARE/1+)
[2023-02-13 15:22] LABS: BACTERIA URINE 1+
[2023-02-13 15:23] LABS: *AMPHETAMINES SCREEN URINE NEGATIVE (NEGATIVE); *BARBITURATES SCREEN URINE NEGATIVE (NEGATIVE); *BENZODIAZEPINES SCREEN URINE NEGATIVE (NEGATIVE); *COCAINE SCREEN URINE NEGATIVE (NEGATIVE); CANNABINOID URINE SCREEN PRESUMPTIVE POSITIVE (NEGATIVE); ECSTASY MDMA SCREEN URINE NEGATIVE (NEGATIVE); METHADONE URINE SCREEN Neg (NEGATIVE); OPIATES URINE SCREEN NEGATIVE (NEGATIVE); PHENCYCLIDINE URINE SCREEN NEGATIVE (NEGATIVE); RBC URINE 0-2 /hpf (0-2); WBC URINE 0-2 /hpf (0-2)
[2023-02-14] MEDS ORDERED: NIFEDIPINE XL 60MG TAB PO SCH (09:00)
[2023-02-14] MEDS ORDERED: METOPROLOL SUCCINATE 50MG ER TABLET PO SCH (09:00)
== END 2023-02-13 15:51 | disposition short-term general hospital (02) ==
LOC: ER 08:31
DX: R11.2 Nausea with vomiting, unspecified (principal); E11.9 Type 2 diabetes mellitus without complications; I16.0 Hypertensive urgency; I12.0 Hypertensive chronic kidney disease with stage 5 chronic kidney disease or end stage renal disease; Z98.890 Other specified postprocedural states
CPT/HCPCS: 36415; 74176; 80053; 80305; 81003; 85025; 93005; 96374; 96375; 99285; J0360; J2405

== ENCOUNTER 2023-06-03 18:32 | Emergency (ER) | payer MEDICAID, OTHER ==
[~2023-06-03] VITALS: Ht 170.2 cm; Wt 68.0 kg
[~2023-06-03 18:32] MED LIST changes: -HYDR-4135 PO; +HYDR50TA39 PO
[2023-06-03 18:37] VITALS: O2SAT 99
[2023-06-03] MEDS: LABETALOL 5MG/ML SYR 20 MG/4 ML SYRINGE IV ONE (19:31)
[2023-06-03] MEDS: LEVETIRACETAM 500MG PREMIX 100 ML IV ONE ×2 (19:31)
[2023-06-03 20:19] LABS: HEMATOCRIT. 31.4 % (42.0-52.0); HEMOGLOBIN. 10.2 g/dL (14.0-18.0); MEAN CORPUSCULAR HEMOGLOBIN 33.1 pg (28.0-32.0); MEAN CORPUSCULAR HGB CONC 32.5 g/dL (31.0-37.0); MEAN CORPUSCULAR VOLUME 101.8 fL (80.0-94.0); MEAN PLATELET VOLUME 9.3 fl (7.4-10.4); PLATELET 179 x1000/uL (130-400); RED BLOOD CELL COUNT 3.08 mill/uL (4.7-6.1); RED CELL DISTRIBUTION WIDTH 15.5 % (11.6-14.6); WHITE BLOOD COUNT 14.2 x1000/uL (4.5-11.0)
[2023-06-03 20:23] LABS: DIFFERENTIAL COMMENT 1
[2023-06-03 20:33] LABS: INR 0.9; PROTHROMBIN TIME 10.2 sec (9.6-11.0)
[2023-06-03 20:34] LABS: ALANINE AMINOTRANSFERASE 47 IU/L (10-49); ALBUMIN 4.2 g/dL (3.2-4.8); ASPARTATE AMINOTRANSFERASE 66 IU/L (<34); BILIRUBIN TOTAL 0.2 mg/dL (0.1-1.0); CALCIUM 8.3 mg/dL (8.7-10.4); CARBON DIOXIDE 19 mEq/L (21-32); CHLORIDE 101 mEq/L (98-107); CREATININE 4.2 mg/dL (0.6-1.3); GLUCOSE 298 mg/dL (70-105); POTASSIUM 4.4 mEq/L (3.5-5.1); PROTEIN TOTAL 7.1 g/dL (6.0-8.3); SODIUM 131 mEq/L (136-145); UREA NITROGEN BLOOD 42 mg/dL (9-23)
[2023-06-03 20:39] LABS: ETHANOL BLOOD < 10 mg/dL (<10); TROPONIN I HIGH SENSITIVITY 73 ng/L (3.0-53)
[2023-06-03 20:40] LABS: PLATELET ESTIMATE NORMAL
[2023-06-03] MEDS: ASPIRIN 325MG EC TABLET PO NR (21:36)
[2023-06-03] MEDS: ENOXAPARIN 80MG/0.8ML SYR SUBCUT SCH (21:43)
[2023-06-03] MEDS: INSULIN LISPRO 100 UNITS/ML SUBCUT ONE (23:49)
[2023-06-04 00:12] VITALS: BP 153/87; PULSE 87; RESP 14; TEMP 98.4
== END 2023-06-04 00:55 | disposition short-term general hospital (02) ==
LOC: ER 18:32 → EDBEDREQ 19:13 → ER 06-04 00:55 → CANBEDREQ 06-05 20:02
DX: I16.1 Hypertensive emergency (principal); I12.0 Hypertensive chronic kidney disease with stage 5 chronic kidney disease or end stage renal disease; E11.22 Type 2 diabetes mellitus with diabetic chronic kidney disease; N18.6 End stage renal disease; F12.10 Cannabis abuse, uncomplicated; Z99.2 Dependence on renal dialysis; Z79.899 Other long term (current) drug therapy
CPT/HCPCS: 80053; 80320; 82962 ×2; 83690; 85025; 85610; 84484; 36415; 71045; 70450; 93005; 96365; 96366; 96372; 99291; J1953; J1650; J1815; J3490; Z7610; G0480

== ENCOUNTER 2023-11-06 14:01 | Inpatient (IN) | payer OTHER ==
[~2023-11-06] VITALS: Ht 175.3 cm; Wt 64.9 kg
[2023-11-06] VITALS (24 sets, daily range): BP systolic 103–257; BP diastolic 59–139; PULSE 69–101; RESP 8–21; TEMP 36.6696–36.8628; O2SAT 92–100
[2023-11-06] MEDS: LABETALOL 5MG/ML 4ML INJ IV ONE (14:44)
[2023-11-06 14:46] LABS: BASOPHILS % 1.4 % (0.0-2.0); EOSINOPHILS % 2.3 % (0.0-5.0); HEMATOCRIT. 41.4 % (42.0-52.0); HEMOGLOBIN. 13.1 g/dL (14.0-18.0); LYMPHOCYTES % 18.4 % (20.0-50.0); MEAN CORPUSCULAR HGB CONC 31.6 g/dL (31.0-37.0); MEAN CORPUSCULAR VOLUME 94.9 fL (80.0-94.0); MEAN PLATELET VOLUME 9.2 fl (7.4-10.4); MONOCYTES % 7.1 % (2.0-8.0); NEUTROPHILS % 70.8 % (40.0-76.0); PLATELET 221 x1000/uL (130-400); RED BLOOD CELL COUNT 4.36 mill/uL (4.7-6.1); RED CELL DISTRIBUTION WIDTH 17.9 % (11.6-14.6)
[2023-11-06 14:49] LABS: CHLORIDE 95 mEq/L (98-107); SODIUM 134 mEq/L (136-145)
[2023-11-06 14:50] LABS: CALCIUM 8.7 mg/dL (8.7-10.4); CARBON DIOXIDE 27 mEq/L (21-32)
[2023-11-06 14:55] LABS: CREATININE 3.4 mg/dL (0.6-1.3); GLUCOSE 260 mg/dL (70-105); UREA NITROGEN BLOOD 26 mg/dL (9-23)
[2023-11-06 15:00] LABS: INR 0.9; PROTHROMBIN TIME 10.2 sec (9.6-11.0)
[2023-11-06 15:30] LABS: ETHANOL BLOOD < 10 mg/dL (<10)
[2023-11-06 15:36] LABS: TROPONIN I HIGH SENSITIVITY 56 ng/L (3.0-53)
[2023-11-06] MEDS ORDERED: NITROGLYCERIN 50MG PREMIX 250 ML IV ONE (15:45)
[2023-11-06] MEDS: NITROGLYCERIN 50MG PREMIX 250 ML IV PRN (16:02)
[2023-11-06] MEDS ORDERED: ACETAMINOPHEN 325MG TABLET PO PRN (17:15)
[2023-11-06] MEDS ORDERED: DOCUSATE SODIUM 100MG CAPSULE PO PRN (17:15)
[2023-11-06] MEDS ORDERED: GUAIFENESIN 200MG/10ML SUGAR FREE UDC PO PRN (17:15)
[2023-11-06] MEDS ORDERED: ONDANSETRON HCL 4MG/2ML INJ IV PRN (17:15)
[2023-11-06] MEDS ORDERED: MAGNESIUM/ALUMINUM HYDROXIDE/SIMETHICONE 30ML UDC PO PRN (17:15)
[2023-11-06] MEDS ORDERED: IPRATROPIUM/ALBUTEROL 0.5-3(2.5)MG/3ML NEB HHN PRN (17:15)
[2023-11-06] MEDS: INSULIN LISPRO 100 UNITS/ML SUBCUT SCH (17:39)
[2023-11-06] MEDS ORDERED: LORAZEPAM 2MG/ML INJ IV PRN (18:00)
[2023-11-06] MEDS ORDERED: POTASSIUM CHLORIDE 20MEQ TABLET SR PO NR (18:15)
[2023-11-06] MEDS ORDERED: LEVETIRACETAM 500MG in NACL 100ML PREMIX IV SCH (21:00)
[2023-11-06 21:23] LABS: PHENYTOIN < 2.0 ug/mL (10-20)
[2023-11-06] MEDS: BLOOD SUGAR DIAGNOSTIC STRIP TEST SCH (21:23)
[2023-11-06 21:24] LABS: CREATINE KINASE 548 IU/L (46-171)
[2023-11-06 21:26] LABS: TROPONIN I HIGH SENSITIVITY 120 ng/L (3.0-53)
[2023-11-06] MEDS: METOPROLOL TARTRATE 25MG TABLET PO SCH (21:29)
[2023-11-06] MEDS: HYDRALAZINE HCL 50MG TABLET PO SCH (21:29)
[2023-11-06] MEDS: CLONIDINE 0.1MG TABLET PO SCH (21:30)
[2023-11-06] MEDS: LEVETIRACETAM 500MG PREMIX 100ML IV SCH (21:30)
[2023-11-06] MEDS: INSULIN GLARGINE 100 UNITS/ML SUBCUT SCH (21:30)
[2023-11-06] MEDS: ACETAMINOPHEN 325MG TABLET PO PRN (22:53)
[2023-11-07] VITALS (98 sets, daily range): BP systolic 130–259; BP diastolic 61–161; PULSE 67–89; RESP 0–24; TEMP 36.44736–36.9474; O2SAT 95–100
[2023-11-07] MEDS: CLONIDINE 0.1MG TABLET PO PRN (01:11)
[2023-11-07 05:24] LABS: BASOPHILS % 0.9 % (0.0-2.0); EOSINOPHILS % 1.6 % (0.0-5.0); HEMATOCRIT. 39.5 % (42.0-52.0); LYMPHOCYTES % 11.2 % (20.0-50.0); MEAN CORPUSCULAR HGB CONC 32.9 g/dL (31.0-37.0); MEAN CORPUSCULAR VOLUME 94.2 fL (80.0-94.0); MEAN PLATELET VOLUME 9.3 fl (7.4-10.4); MONOCYTES % 7.9 % (2.0-8.0); NEUTROPHILS % 78.4 % (40.0-76.0); PLATELET 218 x1000/uL (130-400); RED BLOOD CELL COUNT 4.19 mill/uL (4.7-6.1); RED CELL DISTRIBUTION WIDTH 18.1 % (11.6-14.6); WHITE BLOOD COUNT 9.2 x1000/uL (4.5-11.0)
[2023-11-07 05:26] LABS: CARBON DIOXIDE 30 mEq/L (21-32); CHLORIDE 99 mEq/L (98-107); POTASSIUM 3.1 mEq/L (3.5-5.1); SODIUM 136 mEq/L (136-145)
[2023-11-07 05:27] LABS: CALCIUM 8.8 mg/dL (8.7-10.4)
[2023-11-07 05:31] LABS: CREATININE 3.9 mg/dL (0.6-1.3); GLUCOSE 139 mg/dL (70-105); IRON 44 ug/dL (65-175)
[2023-11-07 05:32] LABS: TRIGLYCERIDE 105 mg/dL (0-150); UREA NITROGEN BLOOD 31 mg/dL (9-23)
[2023-11-07 05:33] LABS: LDL CHOLESTEROL 79 mg/dL (5-100)
[2023-11-07 05:34] LABS: ALBUMIN 4.2 g/dL (3.2-4.8); CHOLESTEROL 171 mg/dL (<200); HDL CHOLESTEROL 65 mg/dL (>55); TOTAL IRON BINDING CAPACITY 266 ug/dl (250-425)
[2023-11-07 05:36] LABS: THYROID STIMULATING HORMONE 3.19 uIU/mL (0.55-4.78)
[2023-11-07 05:41] LABS: FERRITIN 149 ng/mL (22-322); FOLIC ACID (FOLATE) SERUM 13.45 ng/mL (>5.38); VITAMIN B12 SERUM 1433 pg/mL (211-911)
[2023-11-07] MEDS: ENOXAPARIN 80MG/0.8ML SYR SUBCUT SCH (08:45)
[2023-11-07] MEDS: NITROGLYCERIN 50MG PREMIX 250 ML IV PRN (11:37)
[2023-11-07] MEDS: HYDRALAZINE HCL 100MG TABLET PO SCH (13:58)
[2023-11-07] MEDS: CLONIDINE 0.2MG TABLET PO SCH (13:58)
[2023-11-07] MEDS: DEXTROSE 50% WATER 50ML SYRINGE IV PRN (15:29)
[2023-11-07] MEDS: METOPROLOL TARTRATE 50MG TABLET PO SCH (22:18)
[2023-11-08] VITALS (100 sets, daily range): BP systolic 109–205; BP diastolic 55–103; PULSE 64–85; RESP 5–27; TEMP 36.6696–37.11408; O2SAT 96–100
[2023-11-08 06:21] LABS: HEPATITIS B SURFACE ANTIGEN NEGATIVE (Negative)
[2023-11-08 06:42] LABS: HEPATITIS A AB IGM NEGATIVE (Negative); HEPATITIS B CORE AB IGM NEGATIVE (Negative)
[2023-11-08 06:43] LABS: HEPATITIS C AB NON REACTIVE (Neg) (Negative)
[2023-11-08] MEDS: ENOXAPARIN 60MG/0.6ML SYR SUBCUT SCH (08:01)
[2023-11-08 08:34] LABS: CREATINE KINASE 454 IU/L (46-171); TROPONIN I HIGH SENSITIVITY 54 ng/L (3.0-53)
[2023-11-08] MEDS: NIFEDIPINE XL 90MG TAB PO SCH (11:02)
[2023-11-08 12:53] LABS: POTASSIUM 3.5 mEq/L (3.5-5.1)
[2023-11-08 12:55] LABS: CALCIUM 8.1 mg/dL (8.7-10.4); HEMATOCRIT. 37.8 % (42.0-52.0); HEMOGLOBIN. 12.3 g/dL (14.0-18.0); MEAN CORPUSCULAR HEMOGLOBIN 30.6 pg (28.0-32.0); MEAN CORPUSCULAR HGB CONC 32.4 g/dL (31.0-37.0); MEAN CORPUSCULAR VOLUME 94.2 fL (80.0-94.0); MEAN PLATELET VOLUME 8.6 fl (7.4-10.4); PLATELET 187 x1000/uL (130-400); RED BLOOD CELL COUNT 4.01 mill/uL (4.7-6.1); RED CELL DISTRIBUTION WIDTH 17.9 % (11.6-14.6); WHITE BLOOD COUNT 8.6 x1000/uL (4.5-11.0)
[2023-11-08 12:59] LABS: DIFFERENTIAL COMMENT 1
[2023-11-08 14:33] LABS: ANISOCYTOSIS 1+; PLATELET ESTIMATE NORMAL
[2023-11-08] MEDS: LABETALOL 5MG/ML 4ML INJ IV PRN (14:59)
[2023-11-08] MEDS ORDERED: ENAL-79 PO (16:35)
[2023-11-08] MEDS: LEVETIRACETAM 500MG TABLET PO SCH (21:05)
[2023-11-09] VITALS (54 sets, daily range): BP systolic 118–184; BP diastolic 62–92; PULSE 60–71; RESP 9–20; TEMP 36.61404–36.9474; O2SAT 97–100
[2023-11-09 05:36] LABS: CALCIUM 8.4 mg/dL (8.7-10.4); POTASSIUM 3.7 mEq/L (3.5-5.1)
[2023-11-09 05:58] LABS: BASOPHILS % 1.7 % (0.0-2.0); HEMATOCRIT. 36.8 % (42.0-52.0); HEMOGLOBIN. 11.8 g/dL (14.0-18.0); LYMPHOCYTES % 15.7 % (20.0-50.0); MEAN CORPUSCULAR HEMOGLOBIN 30.2 pg (28.0-32.0); MEAN CORPUSCULAR HGB CONC 32.2 g/dL (31.0-37.0); MEAN CORPUSCULAR VOLUME 93.9 fL (80.0-94.0); MEAN PLATELET VOLUME 9.6 fl (7.4-10.4); MONOCYTES % 12.1 % (2.0-8.0); NEUTROPHILS % 68.5 % (40.0-76.0); PLATELET 199 x1000/uL (130-400); RED BLOOD CELL COUNT 3.92 mill/uL (4.7-6.1); RED CELL DISTRIBUTION WIDTH 17.9 % (11.6-14.6)
[2023-11-09 06:04] LABS: CREATININE 5.3 mg/dL (0.6-1.3)
[2023-11-09] MEDS: DOXAZOSIN MESYLATE 4MG TABLET PO SCH (08:58)
[2023-11-09] MEDS: NICARDIPINE 100 MG in SODIUM CHLORIDE 0.9% 60 ML IV PRN (08:59)
[2023-11-09] MEDS: CLONIDINE 0.3MG TABLET PO SCH (14:14)
== END 2023-11-09 14:15 | disposition home or self-care (01) | DRG 53 ==
LOC: ER 14:44 → EDBEDREQTM 16:09 → EDBEDREQ 16:09 → EDBEDREQSVC 16:09 → MICUSO 17:38
PROVIDERS: ADMIT Internal Medicine; ATTEND Internal Medicine
PROC: 5A1D70Z Performance of Urinary Filtration, Intermittent, Less than 6 Hours Per Day (ICD-10-PCS; principal; 2023-11-08)
PROC: 4A00X4Z Measurement of Central Nervous Electrical Activity, External Approach (ICD-10-PCS; 2023-11-09)
DX: G40.501 Epileptic seizures related to external causes, not intractable, with status epilepticus (principal); I21.A1 Myocardial infarction type 2; F05 Delirium due to known physiological condition; I12.0 Hypertensive chronic kidney disease with stage 5 chronic kidney disease or end stage renal disease; E11.319 Type 2 diabetes mellitus with unspecified diabetic retinopathy without macular edema; E11.22 Type 2 diabetes mellitus with diabetic chronic kidney disease; D53.9 Nutritional anemia, unspecified; E87.6 Hypokalemia; N18.6 End stage renal disease; I16.1 Hypertensive emergency; F17.210 Nicotine dependence, cigarettes, uncomplicated; Z79.4 Long term (current) use of insulin; Z86.73 Personal history of transient ischemic attack (TIA), and cerebral infarction without residual deficits; Z99.2 Dependence on renal dialysis
CPT/HCPCS: 36415; 71045; 80048; 80061; 80185; 80320; 82040; 82542; 82550; 82607; 82728; 82746; 82962; 83036; 83540; 83550; 83735; 83880; 84443; 84484; 85025; 86705; 86709; 87340; 90935; 93005; 93306; 93970; 95816; 99285; J1650; J1815; J1953; J3490; G0480

== ENCOUNTER 2023-11-13 15:17 | Inpatient (IN) | payer OTHER ==
[~2023-11-13] VITALS: Ht 175.3 cm; Wt 71.7 kg
[~2023-11-13 15:17] MED LIST changes: -FOLI-43 PO; -INSU100I24 SQ; -POTA-202 PO
[2023-11-13 17:33] LABS: CHLORIDE 98 mEq/L (98-107); SODIUM 136 mEq/L (136-145)
[2023-11-13 17:34] LABS: CALCIUM 8.6 mg/dL (8.7-10.4); CARBON DIOXIDE 31 mEq/L (21-32)
[2023-11-13 17:39] LABS: GLUCOSE 216 mg/dL (70-105); TROPONIN I HIGH SENSITIVITY 50 ng/L (3.0-53); UREA NITROGEN BLOOD 35 mg/dL (9-23)
[2023-11-13 17:41] LABS: INR 0.9; PROTHROMBIN TIME 10.1 sec (9.6-11.0)
[2023-11-13] MEDS: HYDRALAZINE 20MG/ML VIAL IV ONE (17:46)
[2023-11-13 17:54] LABS: BASOPHILS % 2.3 % (0.0-2.0); EOSINOPHILS % 3.4 % (0.0-5.0); HEMATOCRIT. 38.3 % (42.0-52.0); HEMOGLOBIN. 12.6 g/dL (14.0-18.0); LYMPHOCYTES % 28.2 % (20.0-50.0); MEAN CORPUSCULAR HEMOGLOBIN 30.7 pg (28.0-32.0); MEAN CORPUSCULAR HGB CONC 32.8 g/dL (31.0-37.0); MEAN CORPUSCULAR VOLUME 93.5 fL (80.0-94.0); MEAN PLATELET VOLUME 9.2 fl (7.4-10.4); MONOCYTES % 7.4 % (2.0-8.0); NEUTROPHILS % 58.7 % (40.0-76.0); PLATELET 252 x1000/uL (130-400); RED CELL DISTRIBUTION WIDTH 17.2 % (11.6-14.6); WHITE BLOOD COUNT 5.5 x1000/uL (4.5-11.0)
[2023-11-13] MEDS: LABETALOL 5MG/ML 4ML INJ IV ONE (21:32)
[2023-11-14] VITALS (20 sets, daily range): BP systolic 122–193; BP diastolic 65–83; PULSE 72–88; RESP 11–23; TEMP 36.44736–37.3076; O2SAT 98–100
[2023-11-14] MEDS: CLONIDINE 0.1MG TABLET PO PRN (00:48)
[2023-11-14] MEDS: LABETALOL 5MG/ML 4ML INJ IV NR ×2 (02:19→03:52)
[2023-11-14 07:05] LABS: CLARITY URINE CLEAR (CLEAR); COLOR URINE YELLOW (YELLOW); GLUCOSE URINE 3+ (NEGATIVE); KETONES URINE NEGATIVE (NEGATIVE); LEUKOCYTE ESTERASE URINE NEGATIVE (NEGATIVE); NITRITE URINE NEGATIVE (NEGATIVE); OCCULT BLOOD URINE NEGATIVE (NEGATIVE); PH URINE 7.5 (4.5-8.0); PROTEIN URINE 3+ (NEGATIVE); UROBILINOGEN URINE 0.2 E.U./dL (0.2-1.0)
[2023-11-14 07:17] LABS: BACTERIA URINE NONE SEEN; RBC URINE 0-2 /hpf (0-2); SQUAMOUS EPITHELIAL CELL URINE FEW /lpf (RARE/1+); WBC URINE 0-2 /hpf (0-2)
[2023-11-14] MEDS ORDERED: NICARDIPINE 40MG/200ML PREMIX 200 ML IV SCH (07:30)
[2023-11-14] MEDS: NICARDIPINE 40MG/200ML PREMIX 200 ML IV PRN ×2 (07:59→16:02)
[2023-11-14] MEDS: METOPROLOL TARTRATE 50MG TABLET PO SCH (09:19)
[2023-11-14] MEDS: SEVELAMER CARBONATE 800 MG TABLET PO SCH (09:28)
[2023-11-14] MEDS: NIFEDIPINE XL 90MG TAB PO SCH (09:28)
[2023-11-14] MEDS: FOLIC ACID/VITAMIN B COMP W-C TABLET PO SCH (09:28)
[2023-11-14] MEDS: PHENYTOIN SODIUM EXTENDED 100MG CAPSULE PO SCH (11:32)
[2023-11-14] MEDS ORDERED: DOCUSATE SODIUM 100MG CAPSULE PO PRN (14:00)
[2023-11-14] MEDS ORDERED: ENOXAPARIN 40MG/0.4ML SYR SUBCUT SCH (14:00)
[2023-11-14] MEDS ORDERED: ACETAMINOPHEN 325MG TABLET PO PRN (14:00)
[2023-11-14] MEDS: HYDRALAZINE HCL 100MG TABLET PO SCH (14:02)
[2023-11-14] MEDS ORDERED: DEXTROSE 50% WATER 50ML SYRINGE IV PRN ×2 (14:15→18:00)
[2023-11-14 14:46] LABS: BG BASE EXCESS -1.1 mmol/L (-2.0-3.0); BG CARBOXYHEMOGLOBIN 1.4 % (0.5-1.5); BG DEOXYHEMOGLOBIN 9.8 % (0.0-5.0); BG FRACTION INSPIRED OXYGEN 21; BG HCO3 ACT 23.6 mmol/L (21.0-28.0); BG METHEMOGLOBIN 0.3 % (0.5-1.5); BG OXYHEMOGLOBIN 88.5 % (94.0-98.0); BG PCO2 39.6 mmHg (35.0-48.0); BG PH 7.393 (7.350-7.450); BG PO2 63.1 mmHg (83.0-108.0); BG SAMPLE SITE RIGHT RADIAL; BG TOTAL HEMOGLOBIN 14.3 g/dL (13.5-17.5); BG VENT MODE ROOM AIR
[2023-11-14] MEDS: PANTOPRAZOLE SODIUM 40 MG/VIAL IV SCH (15:47)
[2023-11-14] MEDS: CARVEDILOL 6.25 MG TABLET PO SCH (15:47)
[2023-11-14] MEDS: ENOXAPARIN 30MG/0.3ML SYR SUBCUT SCH (15:47)
[2023-11-14] MEDS: PNEUMOCOCCAL 23-VAL P-SAC VAC 0.5ML IM ONE (16:15)
[2023-11-14] MEDS ORDERED: INFLUENZA VACCINE 05/PF 0.5 ML SYRINGE IM ONE (16:15)
[2023-11-14] MEDS: BLOOD SUGAR DIAGNOSTIC STRIP TEST SCH ×2 (17:01→21:55)
[2023-11-14] MEDS: INSULIN LISPRO 100 UNITS/ML SUBCUT SCH ×2 (17:32→21:53)
[2023-11-14] MEDS: ISOSORBIDE DINITRATE 20MG TABLET PO SCH (17:32)
[2023-11-14] MEDS: ONDANSETRON HCL 4MG/2ML INJ IV PRN (17:39)
[2023-11-14] MEDS ORDERED: INSULIN LISPRO 100 UNITS/ML SUBCUT SCH (18:20)
[2023-11-14] MEDS: NICARDIPINE 50 MG in SODIUM CHLORIDE 0.9% 230 ML IV PRN (19:08)
[2023-11-14] MEDS: INSULIN GLARGINE 100 UNITS/ML SUBCUT SCH (21:54)
[2023-11-14 22:44] LABS: CREATINE KINASE MB FRACTION 4.8 ng/mL (0.5-3.6)
[2023-11-14 22:55] LABS: HEPATITIS B SURFACE ANTIGEN NEGATIVE (Negative)
[2023-11-14 23:16] LABS: HEPATITIS C AB NON REACTIVE (Neg) (Negative)
[2023-11-15] VITALS (39 sets, daily range): BP systolic 127–181; BP diastolic 61–98; PULSE 69–83; RESP 9–18; TEMP 36.3918–37.00296; O2SAT 98–100
[2023-11-15 05:58] LABS: BASOPHILS % 1.5 % (0.0-2.0); EOSINOPHILS % 1.2 % (0.0-5.0); HEMATOCRIT. 39.4 % (42.0-52.0); HEMOGLOBIN. 12.7 g/dL (14.0-18.0); LYMPHOCYTES % 7.8 % (20.0-50.0); MEAN CORPUSCULAR HGB CONC 32.3 g/dL (31.0-37.0); MEAN CORPUSCULAR VOLUME 92.8 fL (80.0-94.0); MEAN PLATELET VOLUME 9.3 fl (7.4-10.4); MONOCYTES % 6.2 % (2.0-8.0); NEUTROPHILS % 83.3 % (40.0-76.0); PLATELET 266 x1000/uL (130-400); RED BLOOD CELL COUNT 4.24 mill/uL (4.7-6.1); RED CELL DISTRIBUTION WIDTH 17.5 % (11.6-14.6); WHITE BLOOD COUNT 10.8 x1000/uL (4.5-11.0)
[2023-11-15 06:17] LABS: POTASSIUM 4.7 mEq/L (3.5-5.1)
[2023-11-15 06:23] LABS: CREATINE KINASE MB FRACTION 5.7 ng/mL (0.5-3.6)
[2023-11-15 06:57] LABS: CREATININE 5.5 mg/dL (0.6-1.3)
[2023-11-16] VITALS (72 sets, daily range): BP systolic 115–183; BP diastolic 64–138; PULSE 5–99; RESP 10–23; TEMP 36.3918–37.00296; O2SAT 97–100
[2023-11-16 06:08] LABS: BASOPHILS % 0.8 % (0.0-2.0); EOSINOPHILS % 0.8 % (0.0-5.0); HEMATOCRIT. 38.1 % (42.0-52.0); HEMOGLOBIN. 12.4 g/dL (14.0-18.0); LYMPHOCYTES % 9.5 % (20.0-50.0); MEAN CORPUSCULAR HGB CONC 32.5 g/dL (31.0-37.0); MEAN CORPUSCULAR VOLUME 92.2 fL (80.0-94.0); MEAN PLATELET VOLUME 9.4 fl (7.4-10.4); MONOCYTES % 7.2 % (2.0-8.0); NEUTROPHILS % 81.7 % (40.0-76.0); PLATELET 281 x1000/uL (130-400); RED BLOOD CELL COUNT 4.14 mill/uL (4.7-6.1); RED CELL DISTRIBUTION WIDTH 17.6 % (11.6-14.6); WHITE BLOOD COUNT 11.3 x1000/uL (4.5-11.0)
[2023-11-16 06:39] LABS: CREATININE 6.3 mg/dL (0.6-1.3)
[2023-11-16] MEDS: LOSARTAN 50 MG TABLET PO SCH (10:34)
[2023-11-16] MEDS: CARVEDILOL 12.5MG TABLET PO NR (10:35)
[2023-11-16] MEDS: CARVEDILOL 12.5MG TABLET PO SCH (21:12)
[2023-11-17] VITALS (69 sets, daily range): BP systolic 131–169; BP diastolic 60–136; PULSE 63–80; RESP 7–22; TEMP 36.3918–36.9474; O2SAT 94–100
[2023-11-17] MEDS: HYDRALAZINE 20MG/ML VIAL IV PRN (08:47)
[2023-11-17 09:47] LABS: BASOPHILS % 1.2 % (0.0-2.0); EOSINOPHILS % 0.8 % (0.0-5.0); HEMATOCRIT. 43.1 % (42.0-52.0); LYMPHOCYTES % 10.7 % (20.0-50.0); MEAN CORPUSCULAR HEMOGLOBIN 30.3 pg (28.0-32.0); MEAN CORPUSCULAR HGB CONC 32.5 g/dL (31.0-37.0); MEAN CORPUSCULAR VOLUME 93.3 fL (80.0-94.0); MEAN PLATELET VOLUME 9.3 fl (7.4-10.4); MONOCYTES % 7.5 % (2.0-8.0); NEUTROPHILS % 79.8 % (40.0-76.0); PLATELET 316 x1000/uL (130-400); RED BLOOD CELL COUNT 4.63 mill/uL (4.7-6.1); RED CELL DISTRIBUTION WIDTH 17.4 % (11.6-14.6); WHITE BLOOD COUNT 9.4 x1000/uL (4.5-11.0)
[2023-11-17 09:53] LABS: POTASSIUM 4.2 mEq/L (3.5-5.1)
[2023-11-17 09:55] LABS: CALCIUM 9.1 mg/dL (8.7-10.4)
[2023-11-17 10:02] LABS: CREATININE 5.9 mg/dL (0.6-1.3)
[2023-11-17] MEDS ORDERED: LOSA50TA41 PO (17:14)
[2023-11-17] MEDS ORDERED: PHEN100C4 PO (17:14)
[2023-11-17] MEDS ORDERED: NIFE90TA60 PO (17:14)
[2023-11-17] MEDS ORDERED: ISOS20TA8 PO (17:14)
[2023-11-17] MEDS ORDERED: LANTUSUD SUBCUT (17:14)
[2023-11-17] MEDS ORDERED: COR12 PO (17:14)
[2023-11-17] MEDS ORDERED: HYDR100T31 PO (17:14)
== END 2023-11-17 18:06 | disposition home or self-care (01) | DRG 199 ==
LOC: ER 15:17 → EDBEDREQTM 23:38 → EDBEDREQ 23:38 → EDBEDREQSVC 11-14 07:33 → CVICU 11-14 15:12
PROVIDERS: ADMIT Internal Medicine; ATTEND Internal Medicine
PROC: 5A1D70Z Performance of Urinary Filtration, Intermittent, Less than 6 Hours Per Day (ICD-10-PCS; principal; 2023-11-16)
DX: I16.1 Hypertensive emergency (principal); G93.49 Other encephalopathy; N18.6 End stage renal disease; E11.22 Type 2 diabetes mellitus with diabetic chronic kidney disease; E11.319 Type 2 diabetes mellitus with unspecified diabetic retinopathy without macular edema; G81.94 Hemiplegia, unspecified affecting left nondominant side; D64.9 Anemia, unspecified; E11.65 Type 2 diabetes mellitus with hyperglycemia; E87.70 Fluid overload, unspecified; I13.2 Hypertensive heart and chronic kidney disease with heart failure and with stage 5 chronic kidney disease, or end stage renal disease; E87.5 Hyperkalemia; I50.32 Chronic diastolic (congestive) heart failure; G40.509 Epileptic seizures related to external causes, not intractable, without status epilepticus; Z99.2 Dependence on renal dialysis; R00.1 Bradycardia, unspecified; S01.112A Laceration without foreign body of left eyelid and periocular area, initial encounter; Z91.148 Patient's other noncompliance with medication regimen for other reason; Z79.82 Long term (current) use of aspirin; Z86.73 Personal history of transient ischemic attack (TIA), and cerebral infarction without residual deficits; X58.XXXA Exposure to other specified factors, initial encounter; Y93.89 Activity, other specified; Y92.89 Other specified places as the place of occurrence of the external cause; Y99.8 Other external cause status
CPT/HCPCS: 36415; 36600; 71045; 80048; 80185; 81003; 82375; 82550; 82553; 82805; 82962; 83036; 83880; 84484; 85025; 86705; 87340; 90935; 93005; 93970; 99291; J0360; J1650; J1815; J2405; J2470; J3490; J7050

== ENCOUNTER 2023-11-23 13:54 | Inpatient (IN) | payer OTHER ==
[~2023-11-23] VITALS: Ht 180.3 cm; Wt 63.5 kg
[~2023-11-23 13:54] MED LIST changes: -CLON0.1T PO; +COR12 PO; -ENAL-79 PO; +HYDR100T31 PO; -HYDR50TA39 PO; +ISOS20TA8 PO; +LANTUSUD SUBCUT; +LOSA50TA41 PO; -METO-385 PO; +NIFE90TA60 PO
[2023-11-23 16:04] LABS: BASOPHILS % 0.7 % (0.0-2.0); EOSINOPHILS % 1.7 % (0.0-5.0); HEMATOCRIT. 41.5 % (42.0-52.0); HEMOGLOBIN. 13.7 g/dL (14.0-18.0); LYMPHOCYTES % 8.5 % (20.0-50.0); MEAN CORPUSCULAR HEMOGLOBIN 31.6 pg (28.0-32.0); MEAN CORPUSCULAR VOLUME 95.6 fL (80.0-94.0); MEAN PLATELET VOLUME 8.6 fl (7.4-10.4); MONOCYTES % 9.2 % (2.0-8.0); NEUTROPHILS % 79.9 % (40.0-76.0); PLATELET 226 x1000/uL (130-400); RED BLOOD CELL COUNT 4.34 mill/uL (4.7-6.1); RED CELL DISTRIBUTION WIDTH 18.9 % (11.6-14.6); WHITE BLOOD COUNT 6.9 x1000/uL (4.5-11.0)
[2023-11-23 16:11] LABS: CARBON DIOXIDE 26 mEq/L (21-32); CHLORIDE 95 mEq/L (98-107); SODIUM 132 mEq/L (136-145)
[2023-11-23 16:12] LABS: CALCIUM 8.8 mg/dL (8.7-10.4)
[2023-11-23 16:17] LABS: CREATININE 4.3 mg/dL (0.6-1.3); INR 0.9; PROTHROMBIN TIME 9.8 sec (9.6-11.0); TROPONIN I HIGH SENSITIVITY 27 ng/L (3.0-53); UREA NITROGEN BLOOD 39 mg/dL (9-23)
[2023-11-23 16:19] LABS: ALANINE AMINOTRANSFERASE 123 IU/L (10-49); ALBUMIN 4.3 g/dL (3.2-4.8); ASPARTATE AMINOTRANSFERASE 49 IU/L (<34); BILIRUBIN TOTAL 0.2 mg/dL (0.1-1.0); PROTEIN TOTAL 7.2 g/dL (6.0-8.3)
[2023-11-23 16:20] LABS: BILIRUBIN DIRECT < 0.1 mg/dL (<=3.0)
[2023-11-23 16:21] LABS: GLUCOSE 496 mg/dL (70-105)
[2023-11-23] MEDS: SODIUM CHLORIDE 0.9% 1,000 ML IV ONE (19:52)
[2023-11-23] MEDS: LABETALOL 5MG/ML 4ML INJ IV NR (20:10)
[2023-11-23] MEDS: INSULIN GLARGINE 100 UNITS/ML SUBCUT NR (20:16)
[2023-11-23] MEDS: LABETALOL 5MG/ML 4ML INJ IV ONE (20:59)
[2023-11-23 21:11] LABS: TROPONIN I HIGH SENSITIVITY 26 ng/L (3.0-53)
[2023-11-23] MEDS: NICARDIPINE 40MG/200ML PREMIX 200 ML IV STA (21:39)
[2023-11-24] VITALS (41 sets, daily range): BP systolic 116–201; BP diastolic 70–106; PULSE 69–83; RESP 9–23; TEMP 36.50292–37.0852; O2SAT 94–100
[2023-11-24] MEDS: MELATONIN 3MG TABLET PO NR (02:38)
[2023-11-24] MEDS: NICARDIPINE 40MG/200ML PREMIX 200 ML IV NR (06:17)
[2023-11-24] MEDS ORDERED: ACETAMINOPHEN 325MG TABLET PO PRN ×2 (07:30)
[2023-11-24] MEDS ORDERED: IPRATROPIUM/ALBUTEROL 0.5-3(2.5)MG/3ML NEB HHN PRN (07:30)
[2023-11-24] MEDS ORDERED: MAGNESIUM/ALUMINUM HYDROXIDE/SIMETHICONE 30ML UDC PO PRN (07:30)
[2023-11-24] MEDS ORDERED: ONDANSETRON HCL 4MG/2ML INJ IV PRN (07:30)
[2023-11-24] MEDS ORDERED: DOCUSATE SODIUM 100MG CAPSULE PO PRN (07:30)
[2023-11-24 08:31] LABS: PHOSPHORUS 1.1 mg/dL (2.5-4.9)
[2023-11-24] MEDS: BLOOD SUGAR DIAGNOSTIC STRIP TEST SCH (09:00)
[2023-11-24 09:39] LABS: BG BASE EXCESS 4.2 mmol/L (-2.0-3.0); BG CARBOXYHEMOGLOBIN 2.2 % (0.5-1.5); BG DEOXYHEMOGLOBIN 4.9 % (0.0-5.0); BG FRACTION INSPIRED OXYGEN 21; BG HCO3 ACT 28.4 mmol/L (21.0-28.0); BG METHEMOGLOBIN 0.3 % (0.5-1.5); BG OXYHEMOGLOBIN 92.6 % (94.0-98.0); BG PCO2 40.9 mmHg (35.0-48.0); BG PH 7.459 (7.350-7.450); BG PO2 77.7 mmHg (83.0-108.0); BG SAMPLE SITE RIGHT BRACHIAL; BG TOTAL HEMOGLOBIN 14.3 g/dL (13.5-17.5); BG VENT MODE ROOM AIR
[2023-11-24] MEDS: ASPIRIN 81MG EC TABLET PO SCH (10:38)
[2023-11-24] MEDS: AMLODIPINE 5MG TABLET PO NR (10:38)
[2023-11-24] MEDS: CARVEDILOL 6.25 MG TABLET PO NR (10:38)
[2023-11-24] MEDS: LOSARTAN 50 MG TABLET PO SCH (10:38)
[2023-11-24] MEDS: MAGNESIUM 2 G PREMIX 50 ML IV NR (10:39)
[2023-11-24] MEDS: SEVELAMER CARBONATE 800 MG TABLET PO SCH (10:39)
[2023-11-24] MEDS: ISOSORBIDE DINITRATE 20MG TABLET PO SCH (10:39)
[2023-11-24] MEDS: INSULIN LISPRO 100 UNITS/ML SUBCUT SCH (10:41)
[2023-11-24] MEDS: LABETALOL 5MG/ML 4ML INJ IV PRN (13:04)
[2023-11-24] MEDS: FOLIC ACID/VITAMIN B COMP W-C TABLET PO SCH (13:18)
[2023-11-24] MEDS: HYDRALAZINE HCL 100MG TABLET PO SCH (13:19)
[2023-11-24] MEDS ORDERED: HYDRALAZINE HCL 100MG TABLET PO SCH (14:00)
[2023-11-24] MEDS ORDERED: NICARDIPINE 40MG/200ML PREMIX 200 ML IV SCH (17:15)
[2023-11-24] MEDS: NICARDIPINE 50 MG in SODIUM CHLORIDE 0.9% 250 ML IV PRN (17:51)
[2023-11-24 18:17] LABS: CREATINE KINASE MB FRACTION 5.4 ng/mL (0.5-3.6); TROPONIN I HIGH SENSITIVITY 27 ng/L (3.0-53)
[2023-11-24 18:19] LABS: CREATINE KINASE 138 IU/L (46-171)
[2023-11-24] MEDS: FAMOTIDINE 20MG TABLET PO SCH (21:23)
[2023-11-24] MEDS: CARVEDILOL 12.5MG TABLET PO SCH (21:24)
[2023-11-24] MEDS: INSULIN GLARGINE 100 UNITS/ML SUBCUT SCH (21:25)
[2023-11-25] VITALS (94 sets, daily range): BP systolic 130–184; BP diastolic 62–113; PULSE 51–88; RESP 7–21; TEMP 35.8362–36.6696; O2SAT 92–100
[2023-11-25 00:15] LABS: CREATINE KINASE MB FRACTION 4.7 ng/mL (0.5-3.6)
[2023-11-25] MEDS: DEXTROSE 50% WATER 50ML SYRINGE IV PRN (04:36)
[2023-11-25 05:38] LABS: POTASSIUM 3.7 mEq/L (3.5-5.1)
[2023-11-25 05:44] LABS: BASOPHILS % 1.7 % (0.0-2.0); HEMATOCRIT. 37.7 % (42.0-52.0); HEMOGLOBIN. 12.3 g/dL (14.0-18.0); LYMPHOCYTES % 15.1 % (20.0-50.0); MEAN CORPUSCULAR HEMOGLOBIN 30.3 pg (28.0-32.0); MEAN CORPUSCULAR HGB CONC 32.7 g/dL (31.0-37.0); MEAN CORPUSCULAR VOLUME 92.7 fL (80.0-94.0); MEAN PLATELET VOLUME 9.1 fl (7.4-10.4); NEUTROPHILS % 71.2 % (40.0-76.0); PLATELET 235 x1000/uL (130-400); RED BLOOD CELL COUNT 4.06 mill/uL (4.7-6.1); RED CELL DISTRIBUTION WIDTH 18.3 % (11.6-14.6); WHITE BLOOD COUNT 6.2 x1000/uL (4.5-11.0)
[2023-11-25 06:05] LABS: CREATININE 5.3 mg/dL (0.6-1.3)
[2023-11-25] MEDS ORDERED: DEXTROSE 50% WATER 50ML SYRINGE IV PRN (07:00)
[2023-11-25 07:07] LABS: HEPATITIS B SURFACE ANTIGEN NEGATIVE (Negative)
[2023-11-25 07:28] LABS: HEPATITIS A AB IGM NEGATIVE (Negative); HEPATITIS B CORE AB IGM NEGATIVE (Negative)
[2023-11-25 07:29] LABS: HEPATITIS C AB NON REACTIVE (Neg) (Negative)
[2023-11-25] MEDS: BLOOD SUGAR DIAGNOSTIC STRIP TEST SCH (07:50)
[2023-11-25] MEDS: INSULIN LISPRO 100 UNITS/ML SUBCUT SCH (08:20)
[2023-11-25] MEDS: SEVELAMER CARBONATE 800 MG TABLET PO SCH (08:55)
[2023-11-25] MEDS: AMLODIPINE 10MG TABLET PO SCH (08:58)
[2023-11-25 11:07] LABS: CLARITY URINE CLEAR (CLEAR); COLOR URINE YELLOW (YELLOW); GLUCOSE URINE 3+ (NEGATIVE); KETONES URINE NEGATIVE (NEGATIVE); LEUKOCYTE ESTERASE URINE NEGATIVE (NEGATIVE); NITRITE URINE NEGATIVE (NEGATIVE); OCCULT BLOOD URINE NEGATIVE (NEGATIVE); PROTEIN URINE 3+ (NEGATIVE); SPECIFIC GRAVITY URINE 1.019 (1.005-1.030); UROBILINOGEN URINE 0.2 E.U./dL (0.2-1.0)
[2023-11-25 11:21] LABS: *AMPHETAMINES SCREEN URINE NEGATIVE (NEGATIVE); *BARBITURATES SCREEN URINE NEGATIVE (NEGATIVE); *BENZODIAZEPINES SCREEN URINE NEGATIVE (NEGATIVE); *COCAINE SCREEN URINE NEGATIVE (NEGATIVE); CANNABINOID URINE SCREEN PRESUMPTIVE POSITIVE (NEGATIVE); ECSTASY MDMA SCREEN URINE NEGATIVE (NEGATIVE); METHADONE URINE SCREEN NEGATIVE (NEGATIVE); OPIATES URINE SCREEN NEGATIVE (NEGATIVE); PHENCYCLIDINE URINE SCREEN NEGATIVE (NEGATIVE)
[2023-11-25 11:40] LABS: BACTERIA URINE FEW; RBC URINE NONE SEEN /hpf (0-2); YEAST URINE NONE SEEN
[2023-11-25 11:41] LABS: SQUAMOUS EPITHELIAL CELL URINE RARE /lpf (RARE/1+)
[2023-11-25] MEDS: MELATONIN 3MG TABLET PO NR (20:32)
[2023-11-26] VITALS (58 sets, daily range): BP systolic 93–202; BP diastolic 46–175; PULSE 62–86; RESP 9–23; TEMP 36.16956–37.503; O2SAT 93–100
[2023-11-26] MEDS: CLONIDINE 0.1MG TABLET PO NR (02:28)
[2023-11-26] MEDS: INSULIN GLARGINE 100 UNITS/ML SUBCUT ONE (02:45)
[2023-11-26] MEDS: INSULIN LISPRO 100 UNITS/ML SUBCUT ONE (02:46)
[2023-11-26] MEDS ORDERED: INSULIN LISPRO 100 UNITS/ML SUBCUT NR (03:00)
[2023-11-26] MEDS ORDERED: INSULIN GLARGINE 100 UNITS/ML SUBCUT NR (03:00)
[2023-11-26] MEDS: NITROGLYCERIN OINT 1GM/INCH UDPKT TD SCH (04:09)
[2023-11-26 05:52] LABS: HEMOGLOBIN. 13.1 g/dL (14.0-18.0); MEAN CORPUSCULAR HEMOGLOBIN 30.4 pg (28.0-32.0); MEAN CORPUSCULAR HGB CONC 32.1 g/dL (31.0-37.0); MEAN CORPUSCULAR VOLUME 94.8 fL (80.0-94.0); MEAN PLATELET VOLUME 9.8 fl (7.4-10.4); PLATELET 225 x1000/uL (130-400); RED BLOOD CELL COUNT 4.32 mill/uL (4.7-6.1); RED CELL DISTRIBUTION WIDTH 18.5 % (11.6-14.6); WHITE BLOOD COUNT 10.8 x1000/uL (4.5-11.0)
[2023-11-26 06:04] LABS: POTASSIUM 4.1 mEq/L (3.5-5.1)
[2023-11-26 06:06] LABS: CALCIUM 8.3 mg/dL (8.7-10.4)
[2023-11-26 06:10] LABS: FOLIC ACID (FOLATE) SERUM 13.08 ng/mL (>5.38)
[2023-11-26 06:18] LABS: CREATININE 5.4 mg/dL (0.6-1.3)
[2023-11-26 06:19] LABS: VITAMIN B12 SERUM > 2000 pg/mL (211-911)
[2023-11-26 06:35] LABS: DIFFERENTIAL COMMENT 1
[2023-11-26] MEDS: CLONIDINE 0.3MG TABLET PO ONE (07:02)
[2023-11-26] MEDS ORDERED: LIDOCAINE HCL 1% 10 MG/ML 10ML VIAL ONE (07:22)
[2023-11-26] MEDS ORDERED: LABETALOL HCL 200MG TABLET PO SCH (09:00)
[2023-11-26] MEDS: MINOXIDIL 2.5MG TABLET PO SCH (09:04)
[2023-11-27] VITALS (53 sets, daily range): BP systolic 99–229; BP diastolic 52–99; PULSE 67–83; RESP 8–23; TEMP 36.55848–37.00296; O2SAT 93–99
[2023-11-27 05:34] LABS: CHLORIDE 104 mEq/L (98-107); POTASSIUM 4.1 mEq/L (3.5-5.1); SODIUM 136 mEq/L (136-145)
[2023-11-27 05:35] LABS: CARBON DIOXIDE 24 mEq/L (21-32)
[2023-11-27 06:34] LABS: POTASSIUM 4.3 mEq/L (3.5-5.1)
[2023-11-27 06:35] LABS: CALCIUM 8.3 mg/dL (8.7-10.4)
[2023-11-27 06:50] LABS: DIFFERENTIAL COMMENT 0; HEMATOCRIT. 36.3 % (42.0-52.0); HEMOGLOBIN. 11.7 g/dL (14.0-18.0); LYMPHOCYTES % 7.8 % (20.0-50.0); MEAN CORPUSCULAR HEMOGLOBIN 30.3 pg (28.0-32.0); MEAN CORPUSCULAR HGB CONC 32.2 g/dL (31.0-37.0); MEAN CORPUSCULAR VOLUME 94.1 fL (80.0-94.0); MEAN PLATELET VOLUME 9.9 fl (7.4-10.4); MONOCYTES % 10.7 % (2.0-8.0); NEUTROPHILS % 79.5 % (40.0-76.0); PLATELET 210 x1000/uL (130-400); RED BLOOD CELL COUNT 3.86 mill/uL (4.7-6.1); RED CELL DISTRIBUTION WIDTH 18.5 % (11.6-14.6); WHITE BLOOD COUNT 10.9 x1000/uL (4.5-11.0)
[2023-11-27] MEDS: INSULIN LISPRO 100 UNITS/ML SUBCUT SCH ×2 (08:20→14:01)
[2023-11-27] MEDS: DEXTROSE 50% WATER 50ML SYRINGE IV PRN (08:31)
[2023-11-27] MEDS: HYDRALAZINE HCL 100MG TABLET PO SCH (14:01)
[2023-11-27] MEDS ORDERED: COR12 PO (14:30)
[2023-11-27] MEDS ORDERED: HYDR100T31 PO (14:30)
[2023-11-27] MEDS ORDERED: AMLO10TA80 PO (14:30)
[2023-11-27] MEDS ORDERED: MINO2.5T19 PO (14:30)
[2023-11-27] MEDS ORDERED: AMLODIPINE 10MG TABLET PO SCH (15:30)
[2023-11-27] MEDS ORDERED: MINO2.5T2 MT (15:30)
[2023-11-27 20:46] LABS: PLATELET ESTIMATE NORMAL
[2023-11-27] MEDS ORDERED: CARVEDILOL 12.5MG TABLET PO SCH (21:00)
[2023-11-27] MEDS ORDERED: HYDRALAZINE HCL 100MG TABLET PO SCH (22:00)
[2023-11-28] MEDS ORDERED: NIFEDIPINE XL 90MG TAB PO SCH (09:00)
== END 2023-11-27 17:15 | disposition home or self-care (01) | DRG 199 ==
LOC: ER 13:54 → EDBEDREQ 17:37 → CVICU 21:35 → EDBEDREQSVC 21:36 → EDBEDREQTM 21:39
PROVIDERS: ADMIT Internal Medicine; ATTEND Internal Medicine
PROC: 5A1D70Z Performance of Urinary Filtration, Intermittent, Less than 6 Hours Per Day (ICD-10-PCS; principal; 2023-11-25)
PROC: 05HY33Z Insertion of Infusion Device into Upper Vein, Percutaneous Approach (ICD-10-PCS; 2023-11-26)
PROC: 5A1D70Z Performance of Urinary Filtration, Intermittent, Less than 6 Hours Per Day (ICD-10-PCS; 2023-11-27)
PROC: 0JB70ZZ Excision of Back Subcutaneous Tissue and Fascia, Open Approach (ICD-10-PCS; 2023-11-27)
DX: I16.0 Hypertensive urgency (principal); L89.323 Pressure ulcer of left buttock, stage 3; E11.10 Type 2 diabetes mellitus with ketoacidosis without coma; E11.22 Type 2 diabetes mellitus with diabetic chronic kidney disease; E11.319 Type 2 diabetes mellitus with unspecified diabetic retinopathy without macular edema; N18.6 End stage renal disease; E87.1 Hypo-osmolality and hyponatremia; D53.9 Nutritional anemia, unspecified; R74.01 Elevation of levels of liver transaminase levels; E11.51 Type 2 diabetes mellitus with diabetic peripheral angiopathy without gangrene; F17.210 Nicotine dependence, cigarettes, uncomplicated; E87.70 Fluid overload, unspecified; I13.11 Hypertensive heart and chronic kidney disease without heart failure, with stage 5 chronic kidney disease, or end stage renal disease; R56.9 Unspecified convulsions; Z99.2 Dependence on renal dialysis; Z79.4 Long term (current) use of insulin; Z79.899 Other long term (current) drug therapy; Z86.73 Personal history of transient ischemic attack (TIA), and cerebral infarction without residual deficits; Z91.148 Patient's other noncompliance with medication regimen for other reason
CPT/HCPCS: 36415; 36573; 36600; 71045; 80048; 80051; 80076; 80305; 81003; 82088; 82375; 82550; 82553; 82607; 82746; 82805; 82962; 83036; 83735; 84100; 84244; 84484; 85025; 86705; 86709; 87340; 90935; 93005; 99291; C1725; J1815; J3475; J3490; J7050

== ENCOUNTER 2024-03-18 10:04 | Emergency (ER) | payer MEDICAID, OTHER ==
[~2024-03-18] VITALS: Ht 175.3 cm; Wt 86.0 kg
[~2024-03-18 10:04] MED LIST changes: -COR12 PO; +DOXA8TAB2 MT; -HYDR100T31 PO; +ISOS120T13 MT; -ISOS20TA8 PO; +MINO10TA MT
[2024-03-18 10:05] VITALS: O2SAT 100
[2024-03-18] MEDS ORDERED: VANCOMYCIN 1G PREMIX 200 ML IV ONE (10:15)
[2024-03-18] MEDS ORDERED: PIPERACILLIN/TAZO 3.375G/50ML 50 ML IV ONE (10:15)
[2024-03-18] MEDS: SODIUM CHLORIDE 0.9% 1,000 ML IV ONE (10:15)
[2024-03-18] MEDS: PIPERACILLIN/TAZO 3.375G/100ML IV NR (11:34)
[2024-03-18 12:10] LABS: BASOPHILS % 0.9 % (0.0-2.0); EOSINOPHILS % 1.4 % (0.0-5.0); HEMATOCRIT. 26.7 % (42.0-52.0); HEMOGLOBIN. 8.6 g/dL (14.0-18.0); LYMPHOCYTES % 9.1 % (20.0-50.0); MEAN CORPUSCULAR HEMOGLOBIN 30.5 pg (28.0-32.0); MEAN CORPUSCULAR HGB CONC 32.3 g/dL (31.0-37.0); MEAN CORPUSCULAR VOLUME 94.3 fL (80.0-94.0); NEUTROPHILS % 78.6 % (40.0-76.0); PLATELET 140 x1000/uL (130-400); RED BLOOD CELL COUNT 2.83 mill/uL (4.7-6.1); RED CELL DISTRIBUTION WIDTH 15.6 % (11.6-14.6); WHITE BLOOD COUNT 5.7 x1000/uL (4.5-11.0)
[2024-03-18 12:22] LABS: INR 0.9; PROTHROMBIN TIME 10.3 sec (9.6-11.0)
[2024-03-18 12:24] LABS: CHLORIDE 107 mEq/L (98-107); POTASSIUM 3.5 mEq/L (3.5-5.1); SODIUM 139 mEq/L (136-145)
[2024-03-18 12:25] LABS: CARBON DIOXIDE 22 mEq/L (21-32)
[2024-03-18 12:26] LABS: CALCIUM 6.4 mg/dL (8.7-10.4)
[2024-03-18 12:30] LABS: GLUCOSE 105 mg/dL (70-105)
[2024-03-18 12:31] LABS: UREA NITROGEN BLOOD 68 mg/dL (9-23)
[2024-03-18 12:32] LABS: TROPONIN I HIGH SENSITIVITY 16 ng/L (3.0-53)
[2024-03-18 12:46] LABS: CREATININE 5.3 mg/dL (0.6-1.3)
[2024-03-18] MEDS: VANCOMYCIN 1G PREMIX 200 ML IV NR (13:41)
[2024-03-18 15:05] VITALS: BP 136/68; PULSE 65; RESP 12; TEMP 36.89184; O2SAT 100
== END 2024-03-18 15:44 | disposition left against medical advice (07) ==
LOC: ER 10:09 → EDBEDREQ 10:16 → EDBEDREQSVC 13:16 → EDBEDREQ 13:16 → ER 15:44
DX: R55 Syncope and collapse (principal); I12.0 Hypertensive chronic kidney disease with stage 5 chronic kidney disease or end stage renal disease; E11.22 Type 2 diabetes mellitus with diabetic chronic kidney disease; N18.6 End stage renal disease; Z79.82 Long term (current) use of aspirin; Z79.899 Other long term (current) drug therapy; Z98.890 Other specified postprocedural states; Z86.59 Personal history of other mental and behavioral disorders
CPT/HCPCS: 80048; 82962; 83605; 85025; 85610; 87040; 84484; 36415; 84145; 71045; 93005; 96367; 96361; 96365; 96366; 99291; J2543; J3370; J7030; Z7610 ×2

== ENCOUNTER 2024-07-09 20:00 | Inpatient (IN) | payer OTHER ==
[~2024-07-09] VITALS: Ht 177.8 cm; Wt 71.2 kg
[~2024-07-09 20:00] MED LIST changes: -ASPI-1497 PO; -DOXA8TAB2 MT; +DOXA8TAB81 MT; +HYDR-4001 MT; +HYDR25TA78 MT; +LEVO50TA8 PO; -NIFE90TA60 PO; +PROT40 MT; +SEVE0.8P MT; +SEVE800T8 MT; +SUCR1TAB PO
[2024-07-09 21:08] LABS: BG BASE EXCESS 4.3 mmol/L (-2.0-3.0); BG DEOXYHEMOGLOBIN 7.9 % (0.0-5.0); BG HCO3 ACT 27.6 mmol/L (21.0-28.0); BG METHEMOGLOBIN 0.3 % (0.5-1.5); BG OXYGEN SATURATION 91.9 % (94.0-98.0); BG OXYHEMOGLOBIN 89.8 % (94.0-98.0); BG PCO2 35.4 mmHg (35.0-48.0); BG PH 7.509 (7.350-7.450); BG PO2 60.3 mmHg (83.0-108.0); BG VENT MODE ROOM AIR
[2024-07-09 21:13] LABS: DIFFERENTIAL COMMENT 0; EOSINOPHILS % 0.6 % (0.0-5.0); LYMPHOCYTES % 11.6 % (20.0-50.0); MEAN CORPUSCULAR HEMOGLOBIN 29.9 pg (28.0-32.0); MEAN CORPUSCULAR HGB CONC 33.5 g/dL (31.0-37.0); MEAN CORPUSCULAR VOLUME 89.3 fL (80.0-94.0); MEAN PLATELET VOLUME 9.3 fl (7.4-10.4); MONOCYTES % 12.5 % (2.0-8.0); NEUTROPHILS % 74.3 % (40.0-76.0); PLATELET 233 x1000/uL (130-400); RED CELL DISTRIBUTION WIDTH 19.4 % (11.6-14.6); WHITE BLOOD COUNT 7.6 x1000/uL (4.5-11.0)
[2024-07-09 21:20] LABS: CHLORIDE 98 mEq/L (98-107); POTASSIUM 4.7 mEq/L (3.5-5.1); SODIUM 136 mEq/L (136-145)
[2024-07-09 21:21] LABS: CALCIUM 8.1 mg/dL (8.7-10.4); CARBON DIOXIDE 31 mEq/L (21-32); PROTHROMBIN TIME 11.2 sec (9.6-11.0)
[2024-07-09 21:22] LABS: HEMATOCRIT. 19.7 % (42.0-52.0); HEMOGLOBIN. 6.6 g/dL (14.0-18.0)
[2024-07-09 21:26] LABS: CREATININE 4.6 mg/dL (0.6-1.3); GLUCOSE 118 mg/dL (70-105); TROPONIN I HIGH SENSITIVITY 9 ng/L (3.0-53); UREA NITROGEN BLOOD 40 mg/dL (9-23)
[2024-07-09 21:27] LABS: AMMONIA 18 uMol/L (<32); ETHANOL BLOOD < 10 mg/dL (<10)
[2024-07-09 21:28] LABS: ALANINE AMINOTRANSFERASE 18 IU/L (10-49); ALBUMIN 2.9 g/dL (3.2-4.8); ASPARTATE AMINOTRANSFERASE 18 IU/L (<34); BILIRUBIN DIRECT 0.1 mg/dL (<=3.0); BILIRUBIN TOTAL 0.3 mg/dL (0.1-1.0); CREATINE KINASE 130 IU/L (46-171); PROTEIN TOTAL 6.4 g/dL (6.0-8.3)
[2024-07-10] VITALS (10 sets, daily range): BP systolic 125–180; BP diastolic 73–97; PULSE 60–92; RESP 17–20; TEMP 35.9–36.7; O2SAT 94–100
[2024-07-10] MEDS ORDERED: ENOXAPARIN 40MG/0.4ML SYR SUBCUT SCH (00:30)
[2024-07-10] MEDS ORDERED: ACETAMINOPHEN 325MG TABLET PO PRN (00:30)
[2024-07-10] MEDS ORDERED: IPRATROPIUM/ALBUTEROL 0.5-3(2.5)MG/3ML NEB HHN PRN (00:30)
[2024-07-10] MEDS ORDERED: ONDANSETRON HCL 4MG/2ML INJ IV PRN (00:30)
[2024-07-10] MEDS ORDERED: MAGNESIUM/ALUMINUM HYDROXIDE/SIMETHICONE 30ML UDC PO PRN (00:30)
[2024-07-10] MEDS ORDERED: LEVETIRACETAM 1,000MG in NACL 100ML PREMIX IV ONE (02:00)
[2024-07-10] MEDS: LEVETIRACETAM 1000MG PREMIX 100 ML IV NR (02:52)
[2024-07-10 03:45] LABS: IRON 39 ug/dL (65-175)
[2024-07-10 03:48] LABS: CREATINE KINASE 132 IU/L (46-171); HEMATOCRIT 20.4 % (42.0-52.0); HEMOGLOBIN 6.8 g/dL (14.0-18.0); PHOSPHORUS 3.1 mg/dL (2.5-4.9); TOTAL IRON BINDING CAPACITY 244 ug/dl (250-425)
[2024-07-10] MEDS ORDERED: DEXTROSE 50% WATER 50ML SYRINGE IV PRN (04:00)
[2024-07-10] MEDS: CEFTRIAXONE 1GM/50ML 50 ML IV SCH (05:35)
[2024-07-10] MEDS: LEVOTHYROXINE SODIUM 100MCG TABLET PO SCH (07:20)
[2024-07-10] MEDS: INSULIN LISPRO 100 UNITS/ML SUBCUT SCH (07:50)
[2024-07-10] MEDS: BLOOD SUGAR DIAGNOSTIC STRIP TEST SCH (07:51)
[2024-07-10] MEDS: FOLIC ACID/VITAMIN B COMP W-C TABLET PO SCH (08:34)
[2024-07-10] MEDS: PANTOPRAZOLE SODIUM 40 MG/VIAL IV SCH (08:46)
[2024-07-10] MEDS ORDERED: FAMOTIDINE 20MG/2ML VIAL IV SCH (09:00)
[2024-07-10] MEDS ORDERED: IOHEXOL-350 100 ML BOTTLE ONE (09:31)
[2024-07-10 12:41] LABS: HEPATITIS B SURFACE ANTIGEN NEGATIVE (Negative)
[2024-07-10 13:01] LABS: HEPATITIS A AB IGM NEGATIVE (Negative)
[2024-07-10 13:02] LABS: HEPATITIS B CORE AB IGM NEGATIVE (Negative); HEPATITIS C AB NON REACTIVE (Neg) (Negative)
[2024-07-10] MEDS: CLONIDINE 0.1MG TABLET PO PRN (14:10)
[2024-07-10] MEDS: HYDRALAZINE HCL 25MG TABLET PO SCH (15:07)
[2024-07-10] MEDS: ACETAMINOPHEN 325MG TABLET PO PRN (15:32)
[2024-07-10 19:42] LABS: CLARITY URINE CLOUDY (CLEAR); COLOR URINE YELLOW (YELLOW); GLUCOSE URINE 2+ (NEGATIVE); KETONES URINE NEGATIVE (NEGATIVE); LEUKOCYTE ESTERASE URINE 3+ (NEGATIVE); NITRITE URINE NEGATIVE (NEGATIVE); OCCULT BLOOD URINE 1+ (NEGATIVE); PROTEIN URINE 2+ (NEGATIVE); SPECIFIC GRAVITY URINE 1.012 (1.005-1.030); UROBILINOGEN URINE 0.2 E.U./dL (0.2-1.0)
[2024-07-10 19:53] LABS: *AMPHETAMINES SCREEN URINE NEGATIVE (NEGATIVE); *BARBITURATES SCREEN URINE NEGATIVE (NEGATIVE); *BENZODIAZEPINES SCREEN URINE NEGATIVE (NEGATIVE); *COCAINE SCREEN URINE NEGATIVE (NEGATIVE)
[2024-07-10 19:54] LABS: CANNABINOID URINE SCREEN NEGATIVE (NEGATIVE); ECSTASY MDMA SCREEN URINE NEGATIVE (NEGATIVE); METHADONE URINE SCREEN NEGATIVE (NEGATIVE); OPIATES URINE SCREEN NEGATIVE (NEGATIVE); PHENCYCLIDINE URINE SCREEN NEGATIVE (NEGATIVE)
[2024-07-10 20:29] LABS: BACTERIA URINE TRACE; RBC URINE 0-2 /hpf (0-2); SQUAMOUS EPITHELIAL CELL URINE FEW /lpf (RARE/1+); WBC URINE 25-50 /hpf (0-2)
[2024-07-10] MEDS ORDERED: LEVETIRACETAM 500MG in NACL 100ML PREMIX IV SCH (21:00)
[2024-07-10] MEDS: PHENYTOIN SODIUM EXTENDED 100MG CAPSULE PO SCH (21:45)
[2024-07-10] MEDS: ATORVASTATIN CALCIUM 10MG TABLET PO SCH (21:45)
[2024-07-10] MEDS: LEVETIRACETAM 500MG PREMIX 100ML IV SCH (21:46)
[2024-07-10 22:03] LABS: HEMATOCRIT 28.5 % (42.0-52.0); HEMOGLOBIN 9.3 g/dL (14.0-18.0)
[2024-07-10 22:38] LABS: CREATINE KINASE 134 IU/L (46-171)
[2024-07-11] VITALS (14 sets, daily range): BP systolic 104–179; BP diastolic 72–88; PULSE 63–105; RESP 16–20; TEMP 35.8–37.1; O2SAT 97–100
[2024-07-11] MEDS ORDERED: HALOPERIDOL LACTATE 5MG/ML VIAL IM NR
[2024-07-11 06:30] LABS: HEMATOCRIT. 27.2 % (42.0-52.0); HEMOGLOBIN. 9.1 g/dL (14.0-18.0); MEAN CORPUSCULAR HGB CONC 33.3 g/dL (31.0-37.0); MEAN CORPUSCULAR VOLUME 87.2 fL (80.0-94.0); MEAN PLATELET VOLUME 8.7 fl (7.4-10.4); PLATELET 210 x1000/uL (130-400); RED BLOOD CELL COUNT 3.12 mill/uL (4.7-6.1); RED CELL DISTRIBUTION WIDTH 19.3 % (11.6-14.6); WHITE BLOOD COUNT 10.2 x1000/uL (4.5-11.0)
[2024-07-11 06:41] LABS: POTASSIUM 4.6 mEq/L (3.5-5.1)
[2024-07-11 06:42] LABS: CALCIUM 7.9 mg/dL (8.7-10.4)
[2024-07-11 06:45] LABS: T4 FREE 1.06 ng/dL (0.89-1.76); THYROID STIMULATING HORMONE 3.19 uIU/mL (0.55-4.78)
[2024-07-11 07:05] LABS: CREATININE 5.4 mg/dL (0.6-1.3)
[2024-07-11 07:12] LABS: DIFFERENTIAL COMMENT 1
[2024-07-11] MEDS: GABAPENTIN 400MG CAPSULE PO SCH (15:08)
[2024-07-11 16:25] LABS: ANISOCYTOSIS 1+; PLATELET ESTIMATE NORMAL
[2024-07-11] MEDS: MINOXIDIL 10MG TABLET PO SCH (20:57)
[2024-07-11] MEDS ORDERED: GABAPENTIN 400MG CAPSULE PO SCH (22:00)
[2024-07-12] VITALS: BP 172/82; PULSE 83; RESP 20; TEMP 36.7; O2SAT 100
[2024-07-12 04:00] VITALS: BP 182/78; PULSE 81; RESP 20; TEMP 36.9; O2SAT 100
[2024-07-12] MEDS: CLONIDINE 0.2MG TABLET PO NR (05:20)
[2024-07-12 07:01] LABS: CARBON DIOXIDE 26 mEq/L (21-32); CHLORIDE 96 mEq/L (98-107); POTASSIUM 4.7 mEq/L (3.5-5.1); SODIUM 134 mEq/L (136-145)
[2024-07-12 07:18] LABS: HEMOGLOBIN 9.2 g/dL (14.0-18.0)
[2024-07-12 08:00] VITALS: BP 145/73; PULSE 87; RESP 18; TEMP 36.4; O2SAT 95
[2024-07-12] MEDS: LOSARTAN 50 MG TABLET PO SCH (09:00)
[2024-07-12] MEDS: DOXAZOSIN MESYLATE 4MG TABLET PO SCH (10:16)
[2024-07-12 12:00] VITALS: BP 138/64; PULSE 80; RESP 19; TEMP 36.7; O2SAT 100
[2024-07-12 16:58] VITALS: BP 141/63; PULSE 75; RESP 18; TEMP 36.6; O2SAT 96
[2024-07-12] MEDS: INSULIN LISPRO 100 UNITS/ML SUBCUT SCH (18:06)
[2024-07-12] MEDS: FERROUS SULFATE 300MG/5ML UDC PO SCH (18:07)
[2024-07-12] MEDS: ASCORBIC ACID 250 MG TABLET PO SCH (18:08)
[2024-07-12 20:00] VITALS: BP 133/57; PULSE 84; RESP 19; TEMP 36.6; O2SAT 98
[2024-07-12] MEDS: EPOETIN ALFA 4000UNITS/ML VIAL SUBCUT SCH (22:11)
[2024-07-13] VITALS (15 sets, daily range): BP systolic 105–146; BP diastolic 57–76; PULSE 77–97; RESP 17–20; TEMP 36.22512–36.7; O2SAT 96–100
[2024-07-13] MEDS: FOLIC ACID 1MG TABLET PO SCH (09:42)
[2024-07-13 11:59] LABS: HEMATOCRIT. 29.4 % (42.0-52.0); HEMOGLOBIN. 9.8 g/dL (14.0-18.0); MEAN CORPUSCULAR HEMOGLOBIN 29.2 pg (28.0-32.0); MEAN CORPUSCULAR HGB CONC 33.2 g/dL (31.0-37.0); MEAN CORPUSCULAR VOLUME 87.7 fL (80.0-94.0); MEAN PLATELET VOLUME 8.8 fl (7.4-10.4); PLATELET 218 x1000/uL (130-400); RED BLOOD CELL COUNT 3.35 mill/uL (4.7-6.1); RED CELL DISTRIBUTION WIDTH 19.5 % (11.6-14.6); WHITE BLOOD COUNT 12.3 x1000/uL (4.5-11.0)
[2024-07-13 12:05] LABS: DIFFERENTIAL COMMENT 1
[2024-07-13 12:18] LABS: POTASSIUM 5.2 mEq/L (3.5-5.1)
[2024-07-13 12:19] LABS: CALCIUM 7.9 mg/dL (8.7-10.4)
[2024-07-13 12:27] LABS: CREATININE 6.1 mg/dL (0.6-1.3)
[2024-07-13 14:57] LABS: PLATELET ESTIMATE NORMAL
[2024-07-13 14:58] LABS: ANISOCYTOSIS 1+
[2024-07-13] MEDS ORDERED: ISOS120T13 MT (16:29)
[2024-07-13] MEDS ORDERED: ATOR10TA PO (16:29)
[2024-07-13] MEDS ORDERED: ASCO-494 PO (16:29)
[2024-07-13] MEDS ORDERED: PHEN100C12 MT (16:29)
[2024-07-13] MEDS ORDERED: FE300LUD PO (16:29)
[2024-07-13] MEDS ORDERED: INSLIS SUBCUT (16:29)
[2024-07-13] MEDS ORDERED: PANT40SU MT (16:29)
[2024-07-13] MEDS ORDERED: GABA-534 PO (16:29)
[2024-07-13] MEDS ORDERED: DOXA8TAB81 MT (16:29)
[2024-07-13] MEDS ORDERED: LOSA50TA41 MT (16:29)
[2024-07-13] MEDS ORDERED: KEPP500 MT (16:29)
[2024-07-13] MEDS ORDERED: MINO10TA2 PO (16:29)
[2024-07-13] MEDS ORDERED: LEVO100T9 PO (16:29)
[2024-07-13] MEDS ORDERED: HYDR25TA78 PO (16:29)
== END 2024-07-13 22:25 | disposition home or self-care (01) | DRG 470 ==
LOC: ER 20:00 → 6WST 21:52
PROVIDERS: ADMIT Internal Medicine; ATTEND Internal Medicine
PROC: 30233N1 Transfusion of Nonautologous Red Blood Cells into Peripheral Vein, Percutaneous Approach (ICD-10-PCS; 2024-07-10)
PROC: 0JB70ZZ Excision of Back Subcutaneous Tissue and Fascia, Open Approach (ICD-10-PCS; principal; 2024-07-11)
PROC: 5A1D70Z Performance of Urinary Filtration, Intermittent, Less than 6 Hours Per Day (ICD-10-PCS; 2024-07-11)
PROC: 4A00X4Z Measurement of Central Nervous Electrical Activity, External Approach (ICD-10-PCS; 2024-07-12)
PROC: 5A1D70Z Performance of Urinary Filtration, Intermittent, Less than 6 Hours Per Day (ICD-10-PCS; 2024-07-13)
DX: I12.0 Hypertensive chronic kidney disease with stage 5 chronic kidney disease or end stage renal disease (principal); I46.9 Cardiac arrest, cause unspecified; G92.8 Other toxic encephalopathy; L89.154 Pressure ulcer of sacral region, stage 4; E11.52 Type 2 diabetes mellitus with diabetic peripheral angiopathy with gangrene; E11.319 Type 2 diabetes mellitus with unspecified diabetic retinopathy without macular edema; L89.613 Pressure ulcer of right heel, stage 3; L89.623 Pressure ulcer of left heel, stage 3; G45.9 Transient cerebral ischemic attack, unspecified; D63.1 Anemia in chronic kidney disease; E11.22 Type 2 diabetes mellitus with diabetic chronic kidney disease; D50.0 Iron deficiency anemia secondary to blood loss (chronic); I16.0 Hypertensive urgency; N18.6 End stage renal disease; G40.909 Epilepsy, unspecified, not intractable, without status epilepticus; E03.9 Hypothyroidism, unspecified; I51.7 Cardiomegaly; Z86.73 Personal history of transient ischemic attack (TIA), and cerebral infarction without residual deficits; Z74.01 Bed confinement status; Z87.11 Personal history of peptic ulcer disease; Z99.2 Dependence on renal dialysis; I1A.0 Resistant hypertension
CPT/HCPCS: 36415; 36430; 36600; 70496; 70498; 70544; 70553; 71045; 80048; 80051; 80061; 80076; 80185; 80305; 80320; 81003; 82140; 82375; 82542; 82550; 82728; 82805; 82962; 83540; 83550; 83605; 83735; 83880; 84100; 84145; 84439; 84443; 84481; 84484; 85014; 85018; 85025; 85044; 86705; 86709; 86850; 86900; 86920; 87340; 90935; 92610; 93005; 93970; 95816; 97162; 97166; 97530; 99291; J0696; J0885; J1815; J1953; J2470; P9016; Q9967; G0480